=== PATIENT | female | born 1945 | race Caucasian/White ===

== ENCOUNTER 2016-09-29 06:06 | Inpatient (IN) | payer MEDICARE, OTHER ==
[~2016-09-29 06:06] MED LIST: EPINEPHrine 1:1000 1 MG/ML SDV ONE; Lidocaine 1% 4 ML ONE; Ropivacaine 0.5% 5 MG/ML 30 ML SDV ONE
[2016-09-29] MEDS ORDERED: Naloxone 0.4 MG/ML SDV IVPUSH PRN (06:21)
[2016-09-29] MEDS ORDERED: Clindamycin Phosphate 900 MG/6 ML AdvVial ONE (06:21)
[2016-09-29] MEDS ORDERED: Bisacodyl 5 MG Tab PO PRN (06:21)
[2016-09-29] MEDS ORDERED: ceFAZolin 1 GM Vial ONE (06:21)
[2016-09-29] MEDS ORDERED: Sennosides 8.6 MG Tab PO PRN (06:21)
[2016-09-29] MEDS ORDERED: Magnesium Hydroxide 400 MG/5 ML Susp 30 ML Cup PO PRN (06:21)
[2016-09-29] MEDS ORDERED: Vancomycin 1 GM SDV ONE (06:21)
[2016-09-29] MEDS ORDERED: Famotidine 20 MG/2 ML SDV IVPUSH SCH (06:30)
--- NOTE | 2016-09-29 06:32 | PCM.PREANE ---
Preanesthetic Assessment - Allergies Allergies/Adverse Reactions: Allergies Allergy/AdvReac Type Severity Reaction Status Date / Time adhesive tape Allergy Rash Verified 09/26/16 12:14 cefadroxil [From Duricef] Allergy Cannot Verified 09/26/16 12:14 Remember Cephalosporins Allergy Cannot Verified 09/26/16 12:14 Remember ciprofloxacin [From Cipro] Allergy Cannot Verified 09/26/16 12:14 Remember hydroxyzine [From Atarax] Allergy Cannot Verified 09/26/16 12:14 Remember methotrexate Allergy Cannot Verified 09/26/16 12:14 Remember Sulfa (Sulfonamide Allergy Cannot Verified 09/26/16 12:14 Antibiotics) Remember PreAnesthesia Questionnaire Cardiovascular History: Reports: Hypertension Musculoskeletal History: Reports: Osteoarthritis Psychiatric History: Reports: Depression Endocrine/Metabolic History: Reports: Hypothyroidism, Other (see below) Other Endocrine/Metabolic History: raynauds - Past Surgical History HEENT Surgical History: Reports: Adenoidectomy, Cataract surgery, Tonsillectomy Cardiovascular Surgical History: Reports: Other (see below) Other Cardiovascular Surgeries/Procedures: vein stripping GI Surgical History: Reports: Colonoscopy Female Surgical History: Reports: Breast biopsy, Hysterectomy Neurological Surgical History: Reports: Lumbar spine, Spinal fusion, Thoracic spine Musculoskeletal Surgical History: Reports: Knee replacement, Other (see below) Other Musculoskeletal Surgeries/Procedures:: bilateral knee replacements, bunionectomies - SUBSTANCE USE Smoking Status *Q: Former Smoker Recreational Drug Use History: No - HOME MEDS Home Medications: Home Meds Carvedilol [Coreg] 12.5 mg PO BID 09/26/16 [History] Cyclobenzaprine [Flexeril] 5 mg PO ASDIRECTED PRN 09/26/16 [History] DULoxetine [Cymbalta] 20 mg PO DAILY 09/26/16 [History] Esomeprazole [NexIUM] 40 mg PO DAILY 09/26/16 [History] Fexofenadine [Gabriela] 180 mg PO DAILY 09/26/16 [History] Levothyroxine 75 mcg PO DAILY 09/26/16 [History] Lutein/Zeaxanthin [Lutein-Zeaxanthin 25-5 mg Sfgl] 1 cap PO DAILY 09/26/16 [ History] Pravastatin [Pravachol] 20 mg PO DAILY 09/26/16 [History] Ubidecarenone [Co Q-10] 200 mg PO DAILY 09/26/16 [History] Vitamin B Complex 1 cap PO DAILY 09/26/16 [History] traMADol [Ultram] 50 mg PO ASDIRECTED PRN 09/26/16 [History] - CURRENT (IN HOUSE) MEDS Current Meds: Current Medications Lactated Ringer's (Ringers, Lactated) 1,000 mls @ 125 mls/hr IV ASDIRECTED MARTA Lidocaine/Sodium Bicarbonate (Buffered Lidocaine 1% In Ns 8.4%) 0.25 ml IV ONETIME PRN PRN Reason: Prior to IV Start Sodium Chloride (Saline Flush) 10 ml FLUSH ASDIRECTED PRN PRN Reason: Keep Vein Open Discontinued Medications Epinephrine HCl (Adrenalin 1:1000) Confirm Administered Dose 1 mg .ROUTE .STK- MED ONE Stop: 09/29/16 06:00 Lidocaine HCl (Xylocaine-Mpf 1%) Confirm Administered Dose 4 mls @ as directed .ROUTE .STK-MED ONE Stop: 09/29/16 05:59 Ropivacaine (Naropin 0.5%) Confirm Administered Dose 30 ml .ROUTE .STK-MED ONE Stop: 09/29/16 06:00 Preanesthetic Assessment - ANESTHESIA/TRANSFUSION/FAMILY HX Anesthesia/Transfusion History: No Prior Transfusion(s), Prior Anesthesia Type of Anesthesia Reaction: Denies: Allergy, Anesthesia Awareness, Excessive Somnolence, Excessive Nausea/Vomiting, Excessive Itching, Excessive Shivering, Malignant Hyperthermia, Malignant Hyperthermia, Family History, Pseudocholinesterase Deficiency, Pseudocholinesterase Deficiency, Family History of, Urinary Retention, Unknown, Other (see below) Family History of Anesthesia Reaction: No Intubation History: Unknown - REVIEW OF SYSTEMS Constitutional: Reports: no symptoms PHARMACY INTAKE COORDINATOR: Reports: no symptoms (rheumatoid arthritis and lupus noted/ raynauds syndrome), weakness Respiratory: Reports: no symptoms (quit smoking in 30 yrs ago.), cough ( occasional with allergies.) Cardiovascular: Reports: blood pressure problem, dyspnea on exertion, lightheadedness (history of vertigo spells on occasion.) GI: Reports: no symptoms (GERD) Other: Reports: Easy Bruising, Thyroid Problems, Sinus Problem (seasonal allergies noted), Neck Pain (chronic noted.), Depression, Anxiety - PHYSICAL ASSESSMENT HR: 67 O2 Sat by Pulse Oximetry: 95 RR: 16 BP: 110/56 Temp: 37.2 C Height: 1.65 m Weight: 102.965 kg NPO Status Date: 09/28/16 NPO Status Time: 17:00 ASA Class: 2 Mental Status: Alert & Oriented x3 Airway Class: Mallampati = 3 Dentition: Reports: Normal Dentition, Partial, Caries Thyro-Mental Finger Breadths: 3 Mouth Opening Finger Breadths: 3 ROM/Head Extension: Full Respiratory Status: lungs clear to auscultation bilaterally Cardiovascular Status: regular rate & rhythm, normal S1, S2, no murmur - LAB Values: Labs reviewed and noted. MRSA screen negative. - IMAGING/EKG Impressions: EKG: sinus bradycardia with first degree AV block, minimal ST depression noted. CXR: normal - ALLERGIES Allergies/Adverse Reactions: Allergies Allergy/AdvReac Type Severity Reaction Status Date / Time adhesive tape Allergy Rash Verified 09/26/16 12:14 cefadroxil [From Duricef] Allergy Cannot Verified 09/26/16 12:14 Remember Cephalosporins Allergy Cannot Verified 09/26/16 12:14 Remember ciprofloxacin [From Cipro] Allergy Cannot Verified 09/26/16 12:14 Remember hydroxyzine [From Atarax] Allergy Cannot Verified 09/26/16 12:14 Remember methotrexate Allergy Cannot Verified 09/26/16 12:14 Remember Sulfa (Sulfonamide Allergy Cannot Verified 09/26/16 12:14 Antibiotics) Remember - ANESTHESIA PLAN Preop Beta Greg: Yes Beta Greg: Carvedilol Beta-Greg Last Dose Date: 09/29/16 Beta-Greg Last Dose Time: 03:00 Anesthesia Type Planned: General Anesthesia (with left interscalene block under us guidance for post operative pain control requested by Dr. Pimentel.) - ACKNOWLEDGEMENTS Pt an Appropriate Candidate for the Planned Anesthesia: Yes Alternatives and Risks of Anesthesia Discussed w Pt/Guardian: Yes Pt/Guardian Understands and Agrees with Anesthesia Plan: Yes
[2016-09-29] MEDS ORDERED: Ondansetron 4 MG in Sodium Chloride 0.9% 50 ML IV PRN (06:44)
[2016-09-29] MEDS ORDERED: fentaNYL 100 MCG/2 ML SDV ONE ×2 (06:50→08:33)
[2016-09-29] MEDS ORDERED: Propofol 200 MG/20 ML SDV ONE (06:50)
[2016-09-29] MEDS ORDERED: Midazolam 1 MG/ML 2 ML SDV ONE (06:52)
[2016-09-29] MEDS ORDERED: Ondansetron 4 MG/2 ML SDV IVPUSH PRN (06:53)
[2016-09-29] MEDS ORDERED: Lidocaine 1%/Sod Bicarbonate in NS 8.4% 1 ML Syringe IV PRN (07:00)
[2016-09-29] MEDS ORDERED: Sodium Chloride 0.9% 10 ML Syringe FLUSH PRN (07:00)
[2016-09-29] MEDS ORDERED: Lactated Ringers 1,000 ML IV SCH (07:00)
--- NOTE | 2016-09-29 07:57 | PCM.SN ---
- Free Text/Narrative Note: Date: 09/29/2016 Time Out: 06 Start: 657 Stop: 709 Surgical Procedure: Left Reverse Total Shoulder Arthroplasty, and Right shoulder cortisone injection. Diagnosis: Bilateral osteoarthritis of shoulders Current Procedure: Left interscalene block under US guidance for postoperative pain control requested by Dr. Pimentel. Patient chart reviewed, risk/benefits discussed with patient, consent obtained. Patient positioned supine, monitors/alarms on, oxygen placed via nasal cannula at __2_LPM. IV sedation administered: Versed 2mg IV @ 0659. Fentanyl 50 mcg IV @0659. Left shoulder prepped with one chloroprep. Sterile drapes placed with aseptic technique noted. Under US guidance(sterile US sleeve noted) left subclavian artery visualized along with the left brachial plexus. Plexus followed up to C6 cricoid level, and area localized with 2mls of 1% lidocaine. 22gauge 2 inch stimiplex needle advanced under US with 0.8mV with stimulation of bicepts noted. Good stimulation noted as well at 0.4mVs. 1ml of Normal Saline injected with loss of stimulation noted to confirm needle not placed intraneurally. Incremental dosing of 5mls with negative aspiration noted prior to each injection of 0.5% ropivacaine with 1:200,000 epinephrine. Total volume=30mls. HR: 70,66 BP:122/95,121/63 RR:16,15 SPO2:99%,99% Laura Forte CRNA
[2016-09-29] MEDS: Bupivacaine 0.25% 30 ML SDV ONE ×2 (08:22→09:22)
[2016-09-29] MEDS: ceFAZolin 1 GM Vial ONE ×2 (08:23→09:17)
[2016-09-29] MEDS: Iodine/Sodium Iodide 2% Tincture 30 ML Bottle ONE ×2 (08:23→09:16)
[2016-09-29] MEDS: Triamcinolone Acetonide 40 MG/ML 1 ML MDV ONE ×2 (08:25→09:56)
[2016-09-29] MEDS ORDERED: ePHEDrine/Normal Saline 25 MG/5 ML Syringe ONE (08:27)
[2016-09-29] MEDS ORDERED: Phenylephrine/Normal Saline 100 MCG/ML 10 ML Syringe ONE (08:27)
[2016-09-29] MEDS ORDERED: Lactated Ringers 1,000 ML ONE (08:44)
--- NOTE | 2016-09-29 09:26 | PCM.OPNOTE ---
[id number] total shoulder arthroplasty Pre Op Diagnosis: left shoulder osteoarthrosis Post-Op Diagnosis: Same Anesthesia Technique: General ET tube, Regional block Primary Surgeon: Scott Pimentel Anesthesia Provider: Armin Wood Quality Assurance Engineer: Salma Dallas Quality Assurance Engineer: Nahomy Dalton EBL in mLs: 200 Complications: None Condition: Good Free Text/Narrative:: 36mm glenosphere size 7 stem 135 degree 3mm polyethylene insert small glenosphere baseplate with 2 locking screws and 20mm compression screw
[2016-09-29] MEDS ORDERED: Pneumococcal 13-Valent Conjugate Vaccine 0.5 ML Syringe IM ONE (09:48)
[2016-09-29] MEDS ORDERED: Ondansetron 4 MG/2 ML SDV ONE (09:54)
--- NOTE | 2016-09-29 10:22 | PCM.POSTAN ---
POST ANESTHESIA ASSESSMENT - MENTAL STATUS Mental Status: alert, oriented - VITAL SIGNS Pulse Rate: 72 SaO2: 95 Resp Rate: 11 Blood Pressure: 123/71 Temperature: 36.3 C - RESPIRATORY Respiratory Status: respiratory rate WNL, airway patent, O2 saturation stable - CARDIOVASCULAR CV Status: pulse rate WNL, blood pressure stable - GASTROINTESTINAL GI Status: no symptoms - PAIN Pain Score: 2 - POST OP HYDRATION Hydration Status: adequate & stable
--- NOTE | 2016-09-29 10:27 | CR ---
Left shoulder: Four fluoroscopic spot views were obtained of the left shoulder. Study obtained utilizing C-arm device. Findings: Left shoulder prosthesis is seen. Components are aligned as seen on the final 2 films. Underlying bony structures are grossly intact. Fluoroscopy time given as 7.8 seconds. Impression: 1. Operative study showing left shoulder prosthesis placement. Diagnostic code #2
[2016-09-29] MEDS: fentaNYL 100 MCG/2 ML SDV IVPUSH PRN ×2 (10:34→10:44)
--- NOTE | 2016-09-29 11:14 | CR ---
Left shoulder: Single AP view of the left shoulder was obtained. Left shoulder prosthesis is seen. Components are aligned. Soft tissue air is noted from the surgical procedure. Underlying bony structures are intact. Impression: 1. Satisfactory postop appearance of recently placed left shoulder prosthesis. Diagnostic code #2
[2016-09-29] MEDS: Acetaminophen/HYDROcodone 325-5 MG Tab PO PRN ×3 (11:26→21:07)
[2016-09-29] MEDS: Multivitamins,Therapeutic Tab PO SCH (11:42)
--- NOTE | 2016-09-29 14:04 | PCM.CONS ---
<Ana Dooley M - Last Filed: 09/29/16 18:03> H&P History of Present Illness - General Admit Problem/Dx: Admission Diagnosis/Problem Admission Diagnosis/Problem Osteoarthritis - Related Data Allergies/Adverse Reactions: Allergies Allergy/AdvReac Type Severity Reaction Status Date / Time adhesive tape Allergy Rash Verified 09/26/16 12:14 cefadroxil [From Duricef] Allergy Cannot Verified 09/26/16 12:14 Remember Cephalosporins Allergy Cannot Verified 09/26/16 12:14 Remember ciprofloxacin [From Cipro] Allergy Cannot Verified 09/26/16 12:14 Remember hydroxyzine [From Atarax] Allergy Cannot Verified 09/26/16 12:14 Remember methotrexate Allergy Cannot Verified 09/26/16 12:14 Remember Sulfa (Sulfonamide Allergy Cannot Verified 09/26/16 12:14 Antibiotics) Remember Home Medications: Home Meds Carvedilol [Coreg] 12.5 mg PO BID 09/26/16 [History] Cyclobenzaprine [Flexeril] 5 mg PO ASDIRECTED PRN 09/26/16 [History] DULoxetine [Cymbalta] 20 mg PO DAILY 09/26/16 [History] Esomeprazole [NexIUM] 40 mg PO DAILY 09/26/16 [History] Fexofenadine [Gabriela] 180 mg PO DAILY 09/26/16 [History] Levothyroxine 75 mcg PO DAILY 09/26/16 [History] Lutein/Zeaxanthin [Lutein-Zeaxanthin 25-5 mg Sfgl] 1 cap PO DAILY 09/26/16 [ History] Pravastatin [Pravachol] 20 mg PO DAILY 09/26/16 [History] Ubidecarenone [Co Q-10] 200 mg PO DAILY 09/26/16 [History] Vitamin B Complex 1 cap PO DAILY 09/26/16 [History] traMADol [Ultram] 50 mg PO ASDIRECTED PRN 09/26/16 [History] Exam - Vital Signs Vital Signs: Last Vital Signs Temp 36.9 C 09/29/16 11:55 Pulse 70 09/29/16 16:00 Resp 18 09/29/16 16:00 BP 132/74 09/29/16 16:00 Pulse Ox 99 09/29/16 16:00 Consult PN Assessment/Plan Procedures: Procedures ASSAY OF CK (CPK) (04/21/16) C-REACTIVE PROTEIN (04/21/16) COMPLETE CBC AUTOMATED (04/21/16) COMPREHEN METABOLIC PANEL (04/21/16) LIPID PANEL (04/21/16) MR-MESSI DNA AMP PROBE (09/05/16) OFFICE/OUTPATIENT VISIT NEW (03/13/16) ORTHOTIC MGMT AND TRAINING (03/13/16) ROUTINE VENIPUNCTURE (04/21/16) <Winnie Melvin M - Last Filed: 09/30/16 06:52> H&P History of Present Illness - General Date of Service: 09/29/16 Admit Problem/Dx: Admission Diagnosis/Problem Admission Diagnosis/Problem Osteoarthritis Lt Total shoulder arthroplasty Source of Information: Patient, Other (records review) History Limitations: Reports: No limitations - History of Present Illness Initial Comments - Free Text/Narative: Holly is a 71yo female s/p left total shoulder arthroplasty with Dr. Pimentel this morning. She is doing well thus far. Pain is under control, no nausea. PT has been in and working with her. PMH is significant for HTN, Hypothyroidism, HLD, GERD, seasonal allergies, RA, Lupus, Raynauds, she is a former smoker. EBL in surgery was 200cc Hospitalist service is consulted for postoperative medical management. Left Shoulder Pain Score (Numeric/FACES): 5 Past Medical History Cardiovascular History: Reports: Hypertension Musculoskeletal History: Reports: Osteoarthritis Psychiatric History: Reports: Depression Endocrine/Metabolic History: Reports: Hypothyroidism, Other (see below) Other Endocrine/Metabolic History: raynauds - Past Surgical History HEENT Surgical History: Reports: Adenoidectomy, Cataract surgery, Tonsillectomy Cardiovascular Surgical History: Reports: Other (see below) Other Cardiovascular Surgeries/Procedures: vein stripping GI Surgical History: Reports: Colonoscopy Female Surgical History: Reports: Breast biopsy, Hysterectomy Neurological Surgical History: Reports: Lumbar spine, Spinal fusion, Thoracic spine Musculoskeletal Surgical History: Reports: Knee replacement, Other (see below) Other Musculoskeletal Surgeries/Procedures:: bilateral knee replacements, bunionectomies Social & Family History - Tobacco Use Smoking Status *Q: Former Smoker Used Tobacco, but Quit: Yes - Recreational Drug Use Recreational Drug Use: No Drug Use in Last 12 Months: No H&P Review of Systems - Review of Systems: Review Of Systems: See Below General: Reports: no symptoms HEENT: Reports: no symptoms Pulmonary: Reports: No Symptoms Cardiovascular: Reports: no symptoms Gastrointestinal: Reports: No symptoms Genitourinary: Reports: no symptoms Musculoskeletal: Reports: shoulder pain (lt) Skin: Reports: no symptoms Psychiatric: Reports: no symptoms Neurological: Reports: No Symptoms Exam - Exam Exam: See Below - Vital Signs Vital Signs: Last Vital Signs Temp 98.4 F 09/29/16 11:55 Pulse 68 09/29/16 11:55 Resp 18 09/29/16 11:55 BP 128/61 09/29/16 11:55 Pulse Ox 99 09/29/16 11:55 Weight: 227 lb - Exam Quality Assessment: DVT prophylaxis General: alert, oriented, cooperative HEENT: Conjunctiva clear, EACs clear, EOMI, Hearing intact, Mucosa moist & pink , Pupils equal Neck: supple, trachea midline Lungs: Clear to auscultation, Normal respiratory effort Cardiovascular: regular rate, regular rhythm Abdomen: normal bowel sounds, soft (Female) Exam: Deferred Rectal (Female) Exam: Deferred Back Exam: normal inspection Extremities: other (lt arm in postop brace; radial pulse 2+) Skin: warm, dry Neurological: cranial nerves intact Neuro Extensive - Mental Status: alert, oriented x3, normal mood/affect, normal cognition, memory intact Psychiatric: alert, normal affect, normal mood Consult PN Assessment/Plan POD#: 0 Procedures: Procedures ASSAY OF CK (CPK) (04/21/16) C-REACTIVE PROTEIN (04/21/16) COMPLETE CBC AUTOMATED (04/21/16) COMPREHEN METABOLIC PANEL (04/21/16) LIPID PANEL (04/21/16) MR-STAP DNA AMP PROBE (09/05/16) OFFICE/OUTPATIENT VISIT NEW (03/13/16) ORTHOTIC MGMT AND TRAINING (03/13/16) ROUTINE VENIPUNCTURE (04/21/16) (1) Status post total shoulder arthroplasty SNOMED Code(s): 187397118, 362523738 Code(s): Z96.619 - PRESENCE OF UNSPECIFIED ARTIFICIAL SHOULDER JOINT Priority: High Current Visit: Yes Qualifiers: Qualified Code(s): Z96.612 - Presence of left artificial shoulder joint (2) Osteoarthritis SNOMED Code(s): 364685535 Code(s): M19.90 - UNSPECIFIED OSTEOARTHRITIS, UNSPECIFIED SITE Priority: High Current Visit: Yes Qualifiers: Qualified Code(s): M19.012 - Primary osteoarthritis, left shoulder (3) HTN (hypertension) SNOMED Code(s): 27010043 Code(s): I10 - ESSENTIAL (PRIMARY) HYPERTENSION Priority: High Current Visit: No Qualifiers: Qualified Code(s): I10 - Essential (primary) hypertension (4) HLD (hyperlipidemia) SNOMED Code(s): 73230752 Code(s): E78.5 - HYPERLIPIDEMIA, UNSPECIFIED Priority: High Current Visit : No Qualifiers: Qualified Code(s): E78.5 - Hyperlipidemia, unspecified (5) Hypothyroidism SNOMED Code(s): 89448761 Code(s): E03.9 - HYPOTHYROIDISM, UNSPECIFIED Priority: High Current Visit : No Qualifiers: Qualified Code(s): E03.9 - Hypothyroidism, unspecified (6) Depression SNOMED Code(s): 70898107 Code(s): F32.9 - MAJOR DEPRESSIVE DISORDER, SINGLE EPISODE, UNSPECIFIED Priority: Medium Current Visit: No Qualifiers: Qualified Code(s): F32.9 - Major depressive disorder, single episode, unspecified (7) Rheumatoid arthritis SNOMED Code(s): 06091918 Code(s): M06.9 - RHEUMATOID ARTHRITIS, UNSPECIFIED Priority: Medium Current Visit: No (8) Lupus SNOMED Code(s): 84197413, 720287651 Code(s): M32.9 - SYSTEMIC LUPUS ERYTHEMATOSUS, UNSPECIFIED Priority: Medium Current Visit: No Qualifiers: Qualified Code(s): M32.9 - Systemic lupus erythematosus, unspecified (9) GERD (gastroesophageal reflux disease) SNOMED Code(s): 358190608 Code(s): K21.9 - GASTRO-ESOPHAGEAL REFLUX DISEASE WITHOUT ESOPHAGITIS Priority: Medium Current Visit: No Qualifiers: Qualified Code(s): K21.9 - Gastro-esophageal reflux disease without esophagitis (10) Seasonal allergies SNOMED Code(s): 671731917 Code(s): J30.2 - OTHER SEASONAL ALLERGIC RHINITIS Priority: Medium Current Visit: No Qualifiers: Qualified Code(s): J30.2 - Other seasonal allergic rhinitis Problem List Initiated/Reviewed/Updated: Yes Plan: POD #0 S/P Lt Total shoulder arthroplasty with Dr. Pimentel -Pain management and DVT prophylax per primary team/Ortho -PT/OT -VSS -200cc EBL -Doing well thus far Other: Chronic conditions- cont home meds HTN HLD Hypothyroidism RA/Lupus/Raynauds GERD Depression Seasonal allergies Follow am labs GI prophylax Patient is full code status.
[2016-09-29] MEDS: ceFAZolin 2 GM in Premix Bag 1 BAG IV SCH ×2 (15:43→21:46)
[2016-09-29] MEDS: Carvedilol 12.5 MG Tab PO SCH ×2 (19:30→21:03)
[2016-09-29] MEDS: Docusate Sodium 100 MG Cap PO SCH ×2 (19:31→21:02)
[2016-09-29] MEDS: Morphine 2 MG/ML Syringe IVPUSH PRN ×2 (20:39→22:53)
[2016-09-30] MEDS: Morphine 2 MG/ML Syringe IVPUSH PRN ×2 (01:00→04:57)
[2016-09-30] MEDS: Multivitamins,Therapeutic Tab PO SCH (06:58)
[2016-09-30] MEDS: ceFAZolin 2 GM in Premix Bag 1 BAG IV SCH (07:10)
[2016-09-30] MEDS: DULoxetine 20 MG Cap PO SCH ×2 (07:28→09:18)
[2016-09-30] MEDS: Levothyroxine 75 MCG Tab PO SCH ×2 (07:28→09:24)
[2016-09-30] MEDS: Acetaminophen/HYDROcodone 325-5 MG Tab PO PRN ×2 (07:28→12:33)
[2016-09-30] MEDS: Vitamin B Complex With Vitamin C Cap PO SCH ×2 (07:28→09:19)
[2016-09-30] MEDS: Pantoprazole 40 MG Tab.CR PO SCH ×2 (07:29→09:18)
[2016-09-30] MEDS: Loratadine 10 MG Tab PO SCH ×2 (07:29→09:18)
[2016-09-30] MEDS: Aspirin 325 MG Tab.EC PO SCH ×2 (07:29→09:18)
[2016-09-30] MEDS: Simvastatin 10 MG Tab PO SCH ×2 (07:29→09:19)
[2016-09-30] MEDS: Docusate Sodium 100 MG Cap PO SCH ×2 (07:29→09:18)
[2016-09-30] MEDS: Carvedilol 12.5 MG Tab PO SCH ×2 (07:29→09:18)
--- NOTE | 2016-09-30 07:41 | PCM.CONSN ---
- General Info Date of Service: 09/30/16 Admission Dx/Problem (Free Text): Admission Diagnosis/Problem Admission Diagnosis/Problem Osteoarthritis Lt Total shoulder arthroplasty- POD #[address] Pimentel Doing well thus far; pain under fair control, VSS, hgb stable at 12.3 this am Plans for DC to [facility] Functional Status: Reports: pain controlled, tolerating diet, ambulating, urinating - Review of Systems General: Reports: No Symptoms HEENT: Reports: no symptoms Pulmonary: Reports: no symptoms Cardiovascular: Reports: No Symptoms Gastrointestinal: Reports: No symptoms Genitourinary: Reports: no symptoms Musculoskeletal: Reports: shoulder pain Skin: Reports: no symptoms Neurological: Reports: No Symptoms Psychiatric: Reports: no symptoms - Patient Data Vitals - most recent: Last Vital Signs Temp 98.3 F 09/30/16 04:00 Pulse 75 09/30/16 04:00 Resp 20 09/30/16 04:00 BP 135/68 09/30/16 07:29 Pulse Ox 96 09/30/16 04:00 Weight - most recent: 227 lb I&O - last 24 hours: Intake & Output 09/29/16 09/30/16 09/30/16 22:59 06:59 14:59 Intake Total 2110 50 Output Total 150 Balance 1960 50 Lab Results last 24 hrs: Laboratory Results - last 24 hr 09/30/16 Range/Units 07:05 WBC 10.78 H (3.98-10.04) K/mm3 RBC 3.72 L (3.98-5.22) M/mm3 Hgb 12.3 (11.2-15.7) gm/L Hct 37.6 (34.1-44.9) % MCV 101.1 H (79.4-94.8) fl MCH 33.1 H (25.6-32.2) pg MCHC 32.7 (32.2-35.5) g/dl RDW Std Deviation 46.1 (36.4-46.3) fL Plt Count 234 (182-369) K/mm3 MPV 9.7 (9.4-12.3) fl Neut % (Auto) 61.0 (34.0-71.1) % Lymph % (Auto) 18.4 L (19.3-51.7) % [place] % (Auto) 19.1 H (4.7-12.5) % Eos % (Auto) 0.8 (0.7-5.8) Baso % (Auto) 0.5 (0.1-1.2) % Neut # (Auto) 6.58 H (1.56-6.13) K/mm3 Lymph # (Auto) 1.98 (1.18-3.74) K/mm3 [place] # (Auto) 2.06 H (0.24-0.36) K/mm3 Eos # (Auto) 0.09 (0.04-0.36) K/mm3 Baso # (Auto) 0.05 (0.01-0.08) K/mm3 Manual Slide Review Normal smear Med Orders - Current: Current Medications Hydrocodone Bitart/Acetaminophen ([place] 325-5 Mg) 1 - 2 tab PO Q4H PRN PRN Reason: Pain Last Admin: 09/30/16 07:28 Dose: 2 tab Aspirin (Ecotrin) 325 mg PO DAILY [facility] Last Admin: 09/30/16 07:29 Dose: 325 mg Bisacodyl (Dulcolax) 5 mg PO DAILY PRN PRN Reason: Constipation Carvedilol (Coreg) 12.5 mg PO BID [facility] Last Admin: 09/30/16 07:29 Dose: 12.5 mg Docusate Sodium (Colace) 100 mg PO BID [facility] Last Admin: 09/30/16 07:29 Dose: 100 mg Duloxetine HCl (Cymbalta) 20 mg PO DAILY [facility] Last Admin: 09/30/16 07:28 Dose: 20 mg Cefazolin Sodium/Dextrose 2 gm (/ Premix) 50 mls @ 100 mls/hr IV Q8H [facility] Last Admin: 09/30/16 07:10 Dose: 100 mls/hr Levothyroxine Sodium (Levothyroxine) 75 mcg PO DAILY [facility] Last Admin: 09/30/16 07:28 Dose: 75 mcg Loratadine (Claritin) 10 mg PO DAILY [facility] Last Admin: 09/30/16 07:29 Dose: 10 mg Magnesium Hydroxide (Milk Of Magnesia) 30 ml PO BID PRN PRN Reason: Constipation Morphine Sulfate (Morphine) 1 mg IVPUSH Q2H PRN PRN Reason: Pain Last Admin: 09/30/16 04:57 Dose: 1 mg Multivitamins (Thera) 1 each PO WITHBREAKFAST [facility] Last Admin: 09/30/16 06:58 Dose: 1 each Ondansetron HCl (Zofran) 4 mg IVPUSH Q6H PRN PRN Reason: NAUSEA Pantoprazole Sodium (Protonix) 40 mg PO DAILY [facility] Last Admin: 09/30/16 07:29 Dose: 40 mg Lutein/Zeaxanthin [ Lutein-Zeaxanthin 25 -5 Mg Sfgl] 1 Cap 0 each PO DAILY [facility] Senna (Senna) 8.6 mg PO BID PRN PRN Reason: Constipation Last Admin: 09/30/16 07:29 Dose: 8.6 mg Simvastatin (Zocor) 10 mg PO DAILY [facility] Last Admin: 09/30/16 07:29 Dose: 10 mg Vitamin B Complex/Vitamin C (Super B With Vitamin C) 1 cap PO DAILY [facility] Last Admin: 09/30/16 07:28 Dose: 1 cap Discontinued Medications Bupivacaine HCl (Marcaine 0.25%) Confirm Administered Dose 60 ml .ROUTE .STK- MED ONE Stop: 09/29/16 06:22 Last Admin: 09/29/16 09:22 Dose: 14 ml Cefazolin Sodium (Ancef) Confirm Administered Dose 2 gm .ROUTE .STK-MED ONE Stop: 09/29/16 06:22 Cefazolin Sodium (Ancef) Confirm Administered Dose 2 gm .ROUTE .STK-MED ONE Stop: 09/29/16 07:34 Last Admin: 09/29/16 09:17 Dose: 2 gm Clindamycin Phosphate (Cleocin) Confirm Administered Dose 900 mg .ROUTE .STK- MED ONE Stop: 09/29/16 06:22 Ephedrine Sulfate (Ephedrine In Ns) Confirm Administered Dose 25 mg .ROUTE .STK- MED ONE Stop: 09/29/16 08:28 Epinephrine HCl (Adrenalin 1:1000) Confirm Administered Dose 1 mg .ROUTE .STK- MED ONE Stop: 09/29/16 06:00 Famotidine (Pepcid) 20 mg IVPUSH Q12H [facility] Last Admin: 09/29/16 11:42 Dose: Not Given Fentanyl (Sublimaze) Confirm Administered Dose 100 mcg .ROUTE .STK-MED ONE Stop: 09/29/16 06:51 Fentanyl (Sublimaze) Confirm Administered Dose 100 mcg .ROUTE .STK-MED ONE Stop: 09/29/16 08:34 Fentanyl (Sublimaze) 50 mcg IVPUSH Q5M PRN PRN Reason: Pain Stop: 09/29/16 10:46 Last Admin: 09/29/16 10:44 Dose: 50 mcg Lactated Ringer's (Ringers, Lactated) 1,000 mls @ 125 mls/hr IV ASDIRECTED [facility] Stop: 09/29/16 23:00 Last Admin: 09/29/16 06:40 Dose: 125 mls/hr Lidocaine HCl (Xylocaine-Mpf 1%) Confirm Administered Dose 4 mls @ as directed .ROUTE .STK-MED ONE Stop: 09/29/16 05:59 Lactated Ringer's (Ringers, Lactated) Confirm Administered Dose 1,000 mls @ as directed .ROUTE .STK-MED ONE Stop: 09/29/16 08:45 Iodine (Iodine 2% Mild Tincture) Confirm Administered Dose 30 ml .ROUTE .STK- MED ONE Stop: 09/29/16 06:22 Last Admin: 09/29/16 09:16 Dose: 18 ml Lidocaine/Sodium Bicarbonate (Buffered Lidocaine 1% In Ns 8.4%) 0.25 ml IV ONETIME PRN PRN Reason: Prior to IV Start Stop: 09/29/16 18:00 Last Admin: 09/29/16 06:39 Dose: 0.25 ml Midazolam HCl (Versed 1 Mg/Ml) Confirm Administered Dose 2 mg .ROUTE .STK-MED ONE Stop: 09/29/16 06:53 Naloxone HCl (Narcan) 0.1 mg IVPUSH Q5M PRN PRN Reason: Oversedation Stop: 09/29/16 06:37 Ondansetron HCl (Zofran) Confirm Administered Dose 4 mg .ROUTE .STK-MED ONE Stop: 09/29/16 09:55 Phenylephrine HCl (Phenylephrine In Ns 100 Mcg/Ml) Confirm Administered Dose 1 mg .ROUTE .STK-MED ONE Stop: 09/29/16 08:28 Pneumococcal 13-Valent Conj Vacc (Prevnar 13) 0.5 ml IM .ONCE ONE Stop: 09/29/16 09:49 Propofol (Diprivan 20 Ml) Confirm Administered Dose 200 mg .ROUTE .STK-MED ONE Stop: 09/29/16 06:51 Ropivacaine (Naropin 0.5%) Confirm Administered Dose 30 ml .ROUTE .STK-MED ONE Stop: 09/29/16 06:00 Sodium Chloride (Saline Flush) 10 ml FLUSH ASDIRECTED PRN PRN Reason: Keep Vein Open Stop: 09/29/16 18:00 Tranexamic Acid (Cyklokapron) Confirm Administered Dose 1,000 mg .ROUTE .STK- MED ONE Stop: 09/29/16 06:50 Last Admin: 09/29/16 09:42 Dose: 1,000 mg Triamcinolone Acetonide (Kenalog-40) Confirm Administered Dose 80 mg .ROUTE .STK -MED ONE Stop: 09/29/16 06:22 Last Admin: 09/29/16 09:56 Dose: 80 mg Vancomycin HCl (Vancomycin) Confirm Administered Dose 1 gm .ROUTE .STK-MED ONE Stop: 09/29/16 06:22 - Exam Quality Assessment: DVT prophylaxis General: alert, oriented, cooperative, no acute distress HEENT: Pupils equal, Pupils reactive, EOMI, Mucous membr. moist/pink Neck: supple Lungs: Clear to auscultation, Normal respiratory effort Cardiovascular: Regular Rate, Regular Rhythm Abdomen: bowel sounds present, soft, no tenderness, no distension (Female) Exam: Deferred Extremities: no edema, no calf tenderness Peripheral Pulses: 2+: radial (L), radial (R) Skin: warm, dry, intact Neurological: no new focal deficit Psy/Mental Status: alert, normal affect, normal mood Consult PN Assessment/Plan POD#: 1 Procedures: Procedures ASSAY OF CK (CPK) (04/21/16) C-REACTIVE PROTEIN (04/21/16) COMPLETE CBC AUTOMATED (04/21/16) COMPREHEN METABOLIC PANEL (04/21/16) LIPID PANEL (04/21/16) MR-STAPH DNA AMP PROBE (09/05/16) OFFICE/OUTPATIENT VISIT NEW (03/13/16) ORTHOTIC MGMT AND TRAINING (03/13/16) ROUTINE VENIPUNCTURE (04/21/16) (1) Status post total shoulder arthroplasty SNOMED Code(s): 167845736, 416271195 Code(s): Z96.619 - PRESENCE OF UNSPECIFIED ARTIFICIAL SHOULDER JOINT Priority: High Current Visit: Yes Qualifiers: Laterality: left Qualified Code(s): Z96.612 - Presence of left artificial shoulder joint (2) Osteoarthritis SNOMED Code(s): 217608542 Code(s): M19.90 - UNSPECIFIED OSTEOARTHRITIS, UNSPECIFIED SITE Priority: High Current Visit: Yes Qualifiers: Osteoarthritis location: shoulder Osteoarthritis type: primary Laterality : left Qualified Code(s): M19.012 - Primary osteoarthritis, left shoulder (3) HTN (hypertension) SNOMED Code(s): 22195694 Code(s): I10 - ESSENTIAL (PRIMARY) HYPERTENSION Priority: High Current Visit: No Qualifiers: Hypertension type: essential hypertension Qualified Code(s): I10 - Essential (primary) hypertension (4) HLD (hyperlipidemia) SNOMED Code(s): 29082079 Code(s): E78.5 - HYPERLIPIDEMIA, UNSPECIFIED Priority: High Current Visit : No Qualifiers: Hyperlipidemia type: unspecified Qualified Code(s): E78.5 - Hyperlipidemia , unspecified (5) Hypothyroidism SNOMED Code(s): 54856585 Code(s): E03.9 - HYPOTHYROIDISM, UNSPECIFIED Priority: High Current Visit : No Qualifiers: Hypothyroidism type: unspecified Qualified Code(s): E03.9 - Hypothyroidism , unspecified (6) Depression SNOMED Code(s): 40706962 Code(s): F32.9 - MAJOR DEPRESSIVE DISORDER, SINGLE EPISODE, UNSPECIFIED Priority: Medium Current Visit: No Qualifiers: Depression Type: unspecified Qualified Code(s): F32.9 - Major depressive disorder, single episode, unspecified (7) Rheumatoid arthritis SNOMED Code(s): 42431985 Code(s): M06.9 - RHEUMATOID ARTHRITIS, UNSPECIFIED Priority: Medium Current Visit: No Qualifiers: Rheumatoid arthritis location: unspecified site (8) Lupus SNOMED Code(s): 28505873, 687239169 Code(s): M32.9 - SYSTEMIC LUPUS ERYTHEMATOSUS, UNSPECIFIED Priority: Medium Current Visit: No Qualifiers: Systemic lupus erythematosus type: unspecified Systemic lupus erythematosus organ involvement: unspecified Qualified Code(s): M32.9 - Systemic lupus erythematosus, unspecified (9) GERD (gastroesophageal reflux disease) SNOMED Code(s): 684603700 Code(s): K21.9 - GASTRO-ESOPHAGEAL REFLUX DISEASE WITHOUT ESOPHAGITIS Priority: Medium Current Visit: No Qualifiers: Esophagitis presence: esophagitis presence not specified Qualified Code(s) : K21.9 - Gastro-esophageal reflux disease without esophagitis (10) Seasonal allergies SNOMED Code(s): 724984630 Code(s): J30.2 - OTHER SEASONAL ALLERGIC RHINITIS Priority: Medium Current Visit: No Qualifiers: Allergic rhinitis trigger: unspecified Qualified Code(s): J30.2 - Other seasonal allergic rhinitis Problem List Initiated/Reviewed/Updated: Yes My Orders last 24 hours: My Active Orders 09/29/16 21:00 Carvedilol [Coreg] 12.5 mg PO BID 09/30/16 09:00 DULoxetine [Cymbalta] 20 mg PO DAILY Levothyroxine 75 mcg PO DAILY Loratadine [Claritin] 10 mg PO DAILY Pantoprazole [Protonix] 40 mg PO DAILY Patient's Own Medication [Ptom] 0 each PO DAILY Simvastatin [Zocor] 10 mg PO DAILY Vitamin B Complex with C [Super B With Vitamin C] 1 cap PO DAILY Plan: POD #1 S/P Lt Total shoulder arthroplasty with Dr. Pimentel -Pain management and DVT prophylax per primary team/Ortho -PT/OT -VSS -200cc EBL--12.3 hgb this am -Doing well today Other: Chronic conditions- cont home meds HTN HLD Hypothyroidism RA/Lupus/Raynauds GERD Depression Seasonal allergies Follow am labs GI prophylax Plans for dc to skilled swingbed in [place] later today with family to transport. Patient is full code status.
[2016-09-30 08:24] VITALS: BP 132/68
[2016-09-30] MEDS ORDERED: LUTEIN PO SCH (09:00)
[2016-09-30] MEDS ORDERED: ZEAXANTHIN PO SCH (09:00)
--- NOTE | 2016-09-30 09:39 | PCM48HPAN ---
Post Anesthesia Note - EVALUATION WITHIN 48HRS OF ANESTHETIC Vital Signs in Normal Range: Yes Patient Participated in Evaluation: Yes Respiratory Function Stable: Yes Airway Patent: Yes Cardiovascular Function Stable: Yes Hydration Status Stable: Yes Pain Control Satisfactory: Yes Nausea and Vomiting Control Satisfactory: Yes Mental Status Recovered: Yes - COMMENTS/OBSERVATIONS Free Text/Narrative:: Pt reports doing well. interscalene block worked well. pain since block resolved has been well-controlled. using restroom, taking p.o., ambulating. denies fever, chills, nausea, vomiting. reports very satisfied with anesthesia care overall.
--- NOTE | 2016-09-30 10:38 | PCM.SN ---
- Free Text/Narrative Note: Spoke with Dr Munoz in [place], Swing Bed Unit re: report of patient. He is in agreement to accept patient for skilled care stay.
--- NOTE | 2016-09-30 13:35 | PCM.SURGPN ---
- General Info Date of Service: 09/30/16 POD#: 1 Functional Status: Reports: pain controlled, tolerating diet, ambulating, urinating. Denies: new symptoms - Review of Systems Musculoskeletal: Reports: other (The pt would like to be discharged to the Swingbed Unit.) - Patient Data Vitals - most recent: Last Vital Signs Temp 98.1 F 09/30/16 08:00 Pulse 81 09/30/16 08:00 Resp 20 09/30/16 08:00 BP 132/68 09/30/16 08:00 Pulse Ox 94 L 09/30/16 08:00 Weight - most recent: 227 lb I&O - last 24 hours: Intake & Output 09/29/16 09/30/16 09/30/16 22:59 06:59 14:59 Intake Total 2110 50 120 Output Total 150 Balance 1960 50 120 Lab Results last 24 hrs: Laboratory Results - last 24 hr 09/30/16 09/30/16 Range/Units 07:05 07:05 WBC 10.78 H (3.98-10.04) K/mm3 RBC 3.72 L (3.98-5.22) M/mm3 Hgb 12.3 (11.2-15.7) gm/L Hct 37.6 (34.1-44.9) % MCV 101.1 H (79.4-94.8) fl MCH 33.1 H (25.6-32.2) pg MCHC 32.7 (32.2-35.5) g/dl RDW Std Deviation 46.1 (36.4-46.3) fL Plt Count 234 (182-369) K/mm3 MPV 9.7 (9.4-12.3) fl Neut % (Auto) 61.0 (34.0-71.1) % Lymph % (Auto) 18.4 L (19.3-51.7) % [place] % (Auto) 19.1 H (4.7-12.5) % Eos % (Auto) 0.8 (0.7-5.8) Baso % (Auto) 0.5 (0.1-1.2) % Neut # (Auto) 6.58 H (1.56-6.13) K/mm3 Lymph # (Auto) 1.98 (1.18-3.74) K/mm3 [place] # (Auto) 2.06 H (0.24-0.36) K/mm3 Eos # (Auto) 0.09 (0.04-0.36) K/mm3 Baso # (Auto) 0.05 (0.01-0.08) K/mm3 Manual Slide Review Normal smear Sodium 135 L (136-145) mEq/L Potassium 4.5 (3.5-5.1) mEq/L Chloride 100 (98-107) mEq/L Carbon Dioxide 28 (21-32) mEq/L Anion Gap 11.5 (5-15) BUN 10 (7-18) mg/dL Creatinine 0.8 (0.55-1.02) mg/dL Est Cr Clr Drug Dosing 56.36 mL/min Estimated GFR (MDRD) > 60 (>60) mL/min BUN/Creatinine Ratio 12.5 L (14-18) Glucose 117 H (83-115) mg/dL Calcium 9.1 (8.5-10.1) mg/dL Total Bilirubin 0.6 (0.2-1.0) mg/dL AST 23 (15-37) U/L ALT 19 (14-59) U/L Alkaline Phosphatase 93 (46-116) U/L Total Protein 6.7 (6.4-8.2) g/dl Albumin 3.1 L (3.4-5.0) g/dl Globulin 3.6 gm/dL Albumin/Globulin Ratio 0.9 L (1-2) Med Orders - Current: Current Medications Hydrocodone Bitart/Acetaminophen ([place] 325-5 Mg) 1 - 2 tab PO Q4H PRN PRN Reason: Pain Last Admin: 09/30/16 12:33 Dose: 2 tab Aspirin (Ecotrin) 325 mg PO DAILY [facility] Last Admin: 09/30/16 09:18 Dose: Not Given Bisacodyl (Dulcolax) 5 mg PO DAILY PRN PRN Reason: Constipation Carvedilol (Coreg) 12.5 mg PO BID [facility] Last Admin: 09/30/16 09:18 Dose: Not Given Docusate Sodium (Colace) 100 mg PO BID [facility] Last Admin: 09/30/16 09:18 Dose: Not Given Duloxetine HCl (Cymbalta) 20 mg PO DAILY [facility] Last Admin: 09/30/16 09:18 Dose: Not Given Levothyroxine Sodium (Levothyroxine) 75 mcg PO DAILY [facility] Last Admin: 09/30/16 09:24 Dose: Not Given Loratadine (Claritin) 10 mg PO DAILY [facility] Last Admin: 09/30/16 09:18 Dose: Not Given Magnesium Hydroxide (Milk Of Magnesia) 30 ml PO BID PRN PRN Reason: Constipation Morphine Sulfate (Morphine) 1 mg IVPUSH Q2H PRN PRN Reason: Pain Last Admin: 09/30/16 04:57 Dose: 1 mg Multivitamins (Thera) 1 each PO WITHBREAKFAST [facility] Last Admin: 09/30/16 06:58 Dose: 1 each Ondansetron HCl (Zofran) 4 mg IVPUSH Q6H PRN PRN Reason: NAUSEA Pantoprazole Sodium (Protonix) 40 mg PO DAILY [facility] Last Admin: 09/30/16 09:18 Dose: Not Given Lutein/Zeaxanthin [ Lutein-Zeaxanthin 25 -5 Mg Sfgl] 1 Cap 0 each PO DAILY [facility] Last Admin: 09/30/16 09:19 Dose: Not Given Senna (Senna) 8.6 mg PO BID PRN PRN Reason: Constipation Last Admin: 09/30/16 07:29 Dose: 8.6 mg Simvastatin (Zocor) 10 mg PO DAILY [facility] Last Admin: 09/30/16 09:19 Dose: Not Given Vitamin B Complex/Vitamin C (Super B With Vitamin C) 1 cap PO DAILY [facility] Last Admin: 09/30/16 09:19 Dose: Not Given Discontinued Medications Bupivacaine HCl (Marcaine 0.25%) Confirm Administered Dose 60 ml .ROUTE .STK- MED ONE Stop: 09/29/16 06:22 Last Admin: 09/29/16 09:22 Dose: 14 ml Cefazolin Sodium (Ancef) Confirm Administered Dose 2 gm .ROUTE .STK-MED ONE Stop: 09/29/16 06:22 Cefazolin Sodium (Ancef) Confirm Administered Dose 2 gm .ROUTE .STK-MED ONE Stop: 09/29/16 07:34 Last Admin: 09/29/16 09:17 Dose: 2 gm Clindamycin Phosphate (Cleocin) Confirm Administered Dose 900 mg .ROUTE .STK- MED ONE Stop: 09/29/16 06:22 Ephedrine Sulfate (Ephedrine In Ns) Confirm Administered Dose 25 mg .ROUTE .STK- MED ONE Stop: 09/29/16 08:28 Epinephrine HCl (Adrenalin 1:1000) Confirm Administered Dose 1 mg .ROUTE .STK- MED ONE Stop: 09/29/16 06:00 Famotidine (Pepcid) 20 mg IVPUSH Q12H [facility] Last Admin: 09/29/16 11:42 Dose: Not Given Fentanyl (Sublimaze) Confirm Administered Dose 100 mcg .ROUTE .STK-MED ONE Stop: 09/29/16 06:51 Fentanyl (Sublimaze) Confirm Administered Dose 100 mcg .ROUTE .STK-MED ONE Stop: 09/29/16 08:34 Fentanyl (Sublimaze) 50 mcg IVPUSH Q5M PRN PRN Reason: Pain Stop: 09/29/16 10:46 Last Admin: 09/29/16 10:44 Dose: 50 mcg Lactated Ringer's (Ringers, Lactated) 1,000 mls @ 125 mls/hr IV ASDIRECTED [facility] Stop: 09/29/16 23:00 Last Admin: 09/29/16 06:40 Dose: 125 mls/hr Lidocaine HCl (Xylocaine-Mpf 1%) Confirm Administered Dose 4 mls @ as directed .ROUTE .STK-MED ONE Stop: 09/29/16 05:59 Cefazolin Sodium/Dextrose 2 gm (/ Premix) 50 mls @ 100 mls/hr IV Q8H [facility] Last Admin: 09/30/16 07:10 Dose: 100 mls/hr Lactated Ringer's (Ringers, Lactated) Confirm Administered Dose 1,000 mls @ as directed .ROUTE .STK-MED ONE Stop: 09/29/16 08:45 Iodine (Iodine 2% Mild Tincture) Confirm Administered Dose 30 ml .ROUTE .STK- MED ONE Stop: 09/29/16 06:22 Last Admin: 09/29/16 09:16 Dose: 18 ml Lidocaine/Sodium Bicarbonate (Buffered Lidocaine 1% In Ns 8.4%) 0.25 ml IV ONETIME PRN PRN Reason: Prior to IV Start Stop: 09/29/16 18:00 Last Admin: 09/29/16 06:39 Dose: 0.25 ml Midazolam HCl (Versed 1 Mg/Ml) Confirm Administered Dose 2 mg .ROUTE .STK-MED ONE Stop: 09/29/16 06:53 Naloxone HCl (Narcan) 0.1 mg IVPUSH Q5M PRN PRN Reason: Oversedation Stop: 09/29/16 06:37 Ondansetron HCl (Zofran) Confirm Administered Dose 4 mg .ROUTE .STK-MED ONE Stop: 09/29/16 09:55 Phenylephrine HCl (Phenylephrine In Ns 100 Mcg/Ml) Confirm Administered Dose 1 mg .ROUTE .STK-MED ONE Stop: 09/29/16 08:28 Pneumococcal 13-Valent Conj Vacc (Prevnar 13) 0.5 ml IM .ONCE ONE Stop: 09/29/16 09:49 Last Admin: 09/30/16 12:34 Dose: 0.5 ml Propofol (Diprivan 20 Ml) Confirm Administered Dose 200 mg .ROUTE .STK-MED ONE Stop: 09/29/16 06:51 Ropivacaine (Naropin 0.5%) Confirm Administered Dose 30 ml .ROUTE .STK-MED ONE Stop: 09/29/16 06:00 Sodium Chloride (Saline Flush) 10 ml FLUSH ASDIRECTED PRN PRN Reason: Keep Vein Open Stop: 09/29/16 18:00 Tranexamic Acid (Cyklokapron) Confirm Administered Dose 1,000 mg .ROUTE .STK- MED ONE Stop: 09/29/16 06:50 Last Admin: 09/29/16 09:42 Dose: 1,000 mg Triamcinolone Acetonide (Kenalog-40) Confirm Administered Dose 80 mg .ROUTE .STK -MED ONE Stop: 09/29/16 06:22 Last Admin: 09/29/16 09:56 Dose: 80 mg Vancomycin HCl (Vancomycin) Confirm Administered Dose 1 gm .ROUTE .STK-MED ONE Stop: 09/29/16 06:22 - Exam Wound/Incisions: dressing dry and intact General: alert, cooperative, no acute distress Lungs: Normal respiratory effort Extremities: normal pulses (NVS intact for BUE. Active hand, wrist, elbow motion noted.) - Problem List Review Problem List Initiated/Reviewed/Updated: Yes - My Orders Last 24 Hours: Active Orders 24 hr Category Date Time Status Ready for Discharge [RC] PER UNIT ROUTINE Care 09/30/16 06:53 Active Aspirin [Ecotrin] Med 09/30/16 09:00 Active 325 mg PO DAILY Carvedilol [Coreg] Med 09/29/16 21:00 Active 12.5 mg PO BID DULoxetine [Cymbalta] Med 09/30/16 09:00 Active 20 mg PO DAILY Docusate Sodium [Colace] Med 09/29/16 21:00 Active 100 mg PO BID Levothyroxine Med 09/30/16 09:00 Active 75 mcg PO DAILY Loratadine [Claritin] Med 09/30/16 09:00 Active 10 mg PO DAILY Pantoprazole [Protonix] Med 09/30/16 09:00 Active 40 mg PO DAILY Patient's Own Medication [Ptom] Med 09/30/16 09:00 Active 0 each PO DAILY Simvastatin [Zocor] Med 09/30/16 09:00 Active 10 mg PO DAILY Vitamin B Complex with C [Super B With Vitamin C] Med 09/30/16 09:00 Active 1 cap PO DAILY Medication Orders Hydrocodone Bitart/Acetaminophen ([place] 325-5 Mg) 1 - 2 tab PO Q4H PRN PRN Reason: Pain Last Admin: 09/30/16 12:33 Dose: 2 tab Admin: 09/30/16 07:28 Dose: 2 tab Admin: 09/29/16 21:07 Dose: 2 tab Admin: 09/29/16 17:07 Dose: 2 tab Admin: 09/29/16 11:26 Dose: 2 tab Aspirin (Ecotrin) 325 mg PO DAILY [facility] Last Admin: 09/30/16 09:18 Dose: Not Given Admin: 09/30/16 07:29 Dose: 325 mg Bisacodyl (Dulcolax) 5 mg PO DAILY PRN PRN Reason: Constipation Carvedilol (Coreg) 12.5 mg PO BID [facility] Last Admin: 09/30/16 09:18 Dose: Not Given Admin: 09/30/16 07:29 Dose: 12.5 mg Admin: 09/29/16 21:03 Dose: Admin: 09/29/16 19:30 Dose: 12.5 mg Docusate Sodium (Colace) 100 mg PO BID [facility] Last Admin: 09/30/16 09:18 Dose: Not Given Admin: 09/30/16 07:29 Dose: 100 mg Admin: 09/29/16 21:02 Dose: Admin: 09/29/16 19:31 Dose: 100 mg Duloxetine HCl (Cymbalta) 20 mg PO DAILY [facility] Last Admin: 09/30/16 09:18 Dose: Not Given Admin: 09/30/16 07:28 Dose: 20 mg Levothyroxine Sodium (Levothyroxine) 75 mcg PO DAILY [facility] Last Admin: 09/30/16 09:24 Dose: Not Given Admin: 09/30/16 07:28 Dose: 75 mcg Loratadine (Claritin) 10 mg PO DAILY [facility] Last Admin: 09/30/16 09:18 Dose: Not Given Admin: 09/30/16 07:29 Dose: 10 mg Magnesium Hydroxide (Milk Of Magnesia) 30 ml PO BID PRN PRN Reason: Constipation Morphine Sulfate (Morphine) 1 mg IVPUSH Q2H PRN PRN Reason: Pain Last Admin: 09/30/16 04:57 Dose: 1 mg Admin: 09/30/16 01:00 Dose: 1 mg Admin: 09/29/16 22:53 Dose: 1 mg Admin: 09/29/16 20:39 Dose: 1 mg Multivitamins (Thera) 1 each PO WITHBREAKFAST [facility] Last Admin: 09/30/16 06:58 Dose: 1 each Admin: 09/29/16 11:42 Dose: Not Given Ondansetron HCl (Zofran) 4 mg IVPUSH Q6H PRN PRN Reason: NAUSEA Pantoprazole Sodium (Protonix) 40 mg PO DAILY [facility] Last Admin: 09/30/16 09:18 Dose: Not Given Admin: 09/30/16 07:29 Dose: 40 mg Lutein/Zeaxanthin [ Lutein-Zeaxanthin 25 -5 Mg Sfgl] 1 Cap 0 each PO DAILY [facility] Last Admin: 09/30/16 09:19 Dose: Not Given Senna (Senna) 8.6 mg PO BID PRN PRN Reason: Constipation Last Admin: 09/30/16 07:29 Dose: 8.6 mg Simvastatin (Zocor) 10 mg PO DAILY [facility] Last Admin: 09/30/16 09:19 Dose: Not Given Admin: 09/30/16 07:29 Dose: 10 mg Vitamin B Complex/Vitamin C (Super B With Vitamin C) 1 cap PO DAILY [facility] Last Admin: 09/30/16 09:19 Dose: Not Given Admin: 09/30/16 07:28 Dose: 1 cap - Assessment Assessment (Free Text/Narrative):: POD#1 - left RTSA - Plan Plan (Free Text/Narrative):: 1. Hgb 12.3. 2. Outpatient therapy. 3. Discharge to [facility] unit today. The pt's case was discussed with Dr. Pimentel.
--- NOTE | 2016-10-03 08:23 | PCM.DCSUM1 ---
Discharge Summary - Hospital Course Brief History: Holly is a 71 yo female who underwent left reverse total shoulder arthroplasty with Dr. Pimentel on 09-29-16. The procedure was completed under general anesthesia with regional block. The pt tolerated the procedure well and was admitted to the Medical-Surgical Unit. Medical management was provided by the Hospitalist service. The pt's Hospital course was uneventful. The pt's Hgb on POD#1 was 12.3. On POD#1,325mg ASA daily was initiated for VTE prophylaxis. SCDs and TEDs were also used. A Mepilex dressing was placed at the incision site at the time of surgery and remained clean and dry. The pt participated in P.T. and O.T. and progressed well. On POD#1, the pt was deemed appropriate to discharge to the [facility] in [place], [place]. - Discharge Data Discharge Date: 10/03/16 Discharge Disposition: DC/Tfer to Inpt Rehab Fac 62 Condition: Good - Patient Summary/Data Operative Procedure(s) Performed: left reverse total shoulder arthroplasty Consults: Consultations 09/29/16 06:21 Consult to Case Management [CONS] Routine Consult to Physician [CONS] Routine OT Evaluation and Treatment [CONS] Routine 09/29/16 06:26 PT Evaluation and Treatment [CONS] Routine - Patient Instructions Diet: Usual Diet as Tolerated Activity: Apply Ice, As Tolerated, Elevate Extremity Activity, Other: No use of left arm. Driving: Do Not Drive Showering/Bathing: May Shower Showering/Bathing, Other: Keep the dressing in place with showering. Wound/Incision Care: Keep Operative Site/Wound Site Clean and Dry Notify Provider of: Fever, Increased Pain, Swelling and Redness, Drainage, Nausea and/or Vomiting Other/Special Instructions: Please get up and moving around every hour while awake. This helps to prevent blood clots. Please take a 325mg aspirin daily. This also helps to prevent blood clots. The aspirin is not being used for pain management, but rather for blood clot prevention so please try not to miss a dose of the medication. Please wear the immobilizer as directed. You may schedule for physical therapy. The therapist will use the [facility] reverse total shoulder arthroplasty protocol. Place ice to the limb. Have a towel between the blue ice pad and your skin. Keep the Mepilex dressing in place until follow-up at the Clinic. You may use the pain medication as needed. The medication may cause drowsiness and/or constipation. Please contact your primary care provider for instructions if you are constipated. Please call the Clinic with other concerns - [phone]. - Discharge Plan Prescriptions/Med Rec: Acetaminophen/HYDROcodone [[place] 325-5 MG] 1 - 2 tab PO Q4H PRN #50 tablet PRN Reason: Pain Home Medications: Home Meds Carvedilol [Coreg] 12.5 mg PO BID 09/26/16 [History] Cyclobenzaprine [Flexeril] 5 mg PO ASDIRECTED PRN 09/26/16 [History] DULoxetine [Cymbalta] 20 mg PO DAILY 09/26/16 [History] Esomeprazole [NexIUM] 40 mg PO DAILY 09/26/16 [History] Fexofenadine [Gabriela] 180 mg PO DAILY 09/26/16 [History] Levothyroxine 75 mcg PO DAILY 09/26/16 [History] Lutein/Zeaxanthin [Lutein-Zeaxanthin 25-5 mg Sfgl] 1 cap PO DAILY 09/26/16 [ History] Pravastatin [Pravachol] 20 mg PO DAILY 09/26/16 [History] Ubidecarenone [Co Q-10] 200 mg PO DAILY 09/26/16 [History] Vitamin B Complex 1 cap PO DAILY 09/26/16 [History] Acetaminophen/HYDROcodone [[place] 325-5 MG] 1 - 2 tab PO Q4H PRN #50 tablet 09/30 [Rx] Aspirin [Ecotrin] 325 mg PO DAILY tab.ec 09/30/16 [Rx] Bisacodyl [Dulcolax] 5 mg PO DAILY PRN #0 tablet 09/30/16 [Rx] Docusate Sodium [Colace] 100 mg PO BID cap 09/30/16 [Rx] Magnesium Hydroxide [Milk of Magnesia] 30 ml PO BID PRN #0 cup 09/30/16 [Rx] Multivitamins,Therapeutic [Thera] 1 each PO WITHBREAKFAST tablet 09/30/16 [Rx] Sennosides [Senna] 8.6 mg PO BID PRN #0 tablet 09/30/16 [Rx] Patient Handouts: Shoulder Joint Replacement, Shoulder Joint Replacement, Care After Referrals: Salma Dallas PA-C [Physician Loop Puller] - - Patient Data Vitals - Most Recent: Last Vital Signs Temp 98.1 F 09/30/16 08:00 Pulse 81 09/30/16 08:00 Resp 20 09/30/16 08:00 BP 132/68 09/30/16 08:00 Pulse Ox 94 L 09/30/16 08:00 Weight - Most Recent: 227 lb Med Orders - Current: Current Medications Discontinued Medications Hydrocodone Bitart/Acetaminophen ([place] 325-5 Mg) 1 - 2 tab PO Q4H PRN PRN Reason: Pain Last Admin: 09/30/16 12:33 Dose: 2 tab Aspirin (Ecotrin) 325 mg PO DAILY [facility] Last Admin: 09/30/16 09:18 Dose: Not Given Bisacodyl (Dulcolax) 5 mg PO DAILY PRN PRN Reason: Constipation Bupivacaine HCl (Marcaine 0.25%) Confirm Administered Dose 60 ml .ROUTE .STK- MED ONE Stop: 09/29/16 06:22 Last Admin: 09/29/16 09:22 Dose: 14 ml Carvedilol (Coreg) 12.5 mg PO BID [facility] Last Admin: 09/30/16 09:18 Dose: Not Given Cefazolin Sodium (Ancef) Confirm Administered Dose 2 gm .ROUTE .STK-MED ONE Stop: 09/29/16 06:22 Cefazolin Sodium (Ancef) Confirm Administered Dose 2 gm .ROUTE .STK-MED ONE Stop: 09/29/16 07:34 Last Admin: 09/29/16 09:17 Dose: 2 gm Clindamycin Phosphate (Cleocin) Confirm Administered Dose 900 mg .ROUTE .STK- MED ONE Stop: 09/29/16 06:22 Docusate Sodium (Colace) 100 mg PO BID [facility] Last Admin: 09/30/16 09:18 Dose: Not Given Duloxetine HCl (Cymbalta) 20 mg PO DAILY [facility] Last Admin: 09/30/16 09:18 Dose: Not Given Ephedrine Sulfate (Ephedrine In Ns) Confirm Administered Dose 25 mg .ROUTE .STK- MED ONE Stop: 09/29/16 08:28 Epinephrine HCl (Adrenalin 1:1000) Confirm Administered Dose 1 mg .ROUTE .STK- MED ONE Stop: 09/29/16 06:00 Famotidine (Pepcid) 20 mg IVPUSH Q12H [facility] Last Admin: 09/29/16 11:42 Dose: Not Given Fentanyl (Sublimaze) Confirm Administered Dose 100 mcg .ROUTE .STK-MED ONE Stop: 09/29/16 06:51 Fentanyl (Sublimaze) Confirm Administered Dose 100 mcg .ROUTE .STK-MED ONE Stop: 09/29/16 08:34 Fentanyl (Sublimaze) 50 mcg IVPUSH Q5M PRN PRN Reason: Pain Stop: 09/29/16 10:46 Last Admin: 09/29/16 10:44 Dose: 50 mcg Lactated Ringer's (Ringers, Lactated) 1,000 mls @ 125 mls/hr IV ASDIRECTED [facility] Stop: 09/29/16 23:00 Last Admin: 09/29/16 06:40 Dose: 125 mls/hr Lidocaine HCl (Xylocaine-Mpf 1%) Confirm Administered Dose 4 mls @ as directed .ROUTE .STK-MED ONE Stop: 09/29/16 05:59 Cefazolin Sodium/Dextrose 2 gm (/ Premix) 50 mls @ 100 mls/hr IV Q8H [facility] Last Admin: 09/30/16 07:10 Dose: 100 mls/hr Lactated Ringer's (Ringers, Lactated) Confirm Administered Dose 1,000 mls @ as directed .ROUTE .STK-MED ONE Stop: 09/29/16 08:45 Iodine (Iodine 2% Mild Tincture) Confirm Administered Dose 30 ml .ROUTE .STK- MED ONE Stop: 09/29/16 06:22 Last Admin: 09/29/16 09:16 Dose: 18 ml Levothyroxine Sodium (Levothyroxine) 75 mcg PO DAILY [facility] Last Admin: 09/30/16 09:24 Dose: Not Given Lidocaine/Sodium Bicarbonate (Buffered Lidocaine 1% In Ns 8.4%) 0.25 ml IV ONETIME PRN PRN Reason: Prior to IV Start Stop: 09/29/16 18:00 Last Admin: 09/29/16 06:39 Dose: 0.25 ml Loratadine (Claritin) 10 mg PO DAILY [facility] Last Admin: 09/30/16 09:18 Dose: Not Given Magnesium Hydroxide (Milk Of Magnesia) 30 ml PO BID PRN PRN Reason: Constipation Midazolam HCl (Versed 1 Mg/Ml) Confirm Administered Dose 2 mg .ROUTE .STK-MED ONE Stop: 09/29/16 06:53 Morphine Sulfate (Morphine) 1 mg IVPUSH Q2H PRN PRN Reason: Pain Last Admin: 09/30/16 04:57 Dose: 1 mg Multivitamins (Thera) 1 each PO WITHBREAKFAST [facility] Last Admin: 09/30/16 06:58 Dose: 1 each Naloxone HCl (Narcan) 0.1 mg IVPUSH Q5M PRN PRN Reason: Oversedation Stop: 09/29/16 06:37 Ondansetron HCl (Zofran) 4 mg IVPUSH Q6H PRN PRN Reason: NAUSEA Ondansetron HCl (Zofran) Confirm Administered Dose 4 mg .ROUTE .STK-MED ONE Stop: 09/29/16 09:55 Pantoprazole Sodium (Protonix) 40 mg PO DAILY [facility] Last Admin: 09/30/16 09:18 Dose: Not Given Lutein/Zeaxanthin [ Lutein-Zeaxanthin 25 -5 Mg Sfgl] 1 Cap 0 each PO DAILY [facility] Last Admin: 09/30/16 09:19 Dose: Not Given Phenylephrine HCl (Phenylephrine In Ns 100 Mcg/Ml) Confirm Administered Dose 1 mg .ROUTE .STK-MED ONE Stop: 09/29/16 08:28 Pneumococcal 13-Valent Conj Vacc (Prevnar 13) 0.5 ml IM .ONCE ONE Stop: 09/29/16 09:49 Last Admin: 09/30/16 12:34 Dose: 0.5 ml Propofol (Diprivan 20 Ml) Confirm Administered Dose 200 mg .ROUTE .STK-MED ONE Stop: 09/29/16 06:51 Ropivacaine (Naropin 0.5%) Confirm Administered Dose 30 ml .ROUTE .STK-MED ONE Stop: 09/29/16 06:00 Senna (Senna) 8.6 mg PO BID PRN PRN Reason: Constipation Last Admin: 09/30/16 07:29 Dose: 8.6 mg Simvastatin (Zocor) 10 mg PO DAILY [facility] Last Admin: 09/30/16 09:19 Dose: Not Given Sodium Chloride (Saline Flush) 10 ml FLUSH ASDIRECTED PRN PRN Reason: Keep Vein Open Stop: 09/29/16 18:00 Tranexamic Acid (Cyklokapron) Confirm Administered Dose 1,000 mg .ROUTE .STK- MED ONE Stop: 09/29/16 06:50 Last Admin: 09/29/16 09:42 Dose: 1,000 mg Triamcinolone Acetonide (Kenalog-40) Confirm Administered Dose 80 mg .ROUTE .STK -MED ONE Stop: 09/29/16 06:22 Last Admin: 09/29/16 09:56 Dose: 80 mg Vancomycin HCl (Vancomycin) Confirm Administered Dose 1 gm .ROUTE .STK-MED ONE Stop: 09/29/16 06:22 Vitamin B Complex/Vitamin C (Super B With Vitamin C) 1 cap PO DAILY [facility] Last Admin: 09/30/16 09:19 Dose: Not Given *Q Meaningful Use (DIS) - VTE *Q VTE Criteria *Q: - Stroke *Q Stroke Criteria *Q: - AMI *Q AMI Criteria *Q:
--- NOTE | 2016-10-05 21:40 | OR ---
DATE OF OPERATION: 09/29/2016 SURGEON: Scott Pimentel MD OPERATION PERFORMED: Left reverse total shoulder arthroplasty. PREOPERATIVE DIAGNOSIS: Left shoulder osteoarthrosis. POSTOPERATIVE DIAGNOSIS: Left shoulder osteoarthrosis. ANESTHESIA: General endotracheal intubation with regional block. ANESTHESIA PROVIDER: Armin Wood MD. ASSISTANTS: Salma Dallas PA-C and Nahomy Dalton LPN. ESTIMATED BLOOD LOSS: 200 mL. COMPLICATIONS: None. CONDITION: Stable. IMPLANTS: 1. Arthrex 36 mm glenosphere. 2. Arthrex size 7 stem 135 degree. 3. Arthrex 3-mm polyethylene insert. 4. Arthrex small glenosphere base plate with two 4.5 locking screws and 20-mm compression screw. DESCRIPTION OF PROCEDURE: The patient was identified in the preop holding area. Proper site was marked and identified by the surgeon. The patient was taken back to the operating theater where after adequate anesthesia, the patient's left upper extremity was sterilely prepped and draped in the usual sterile fashion. OR time-out was performed. The patient received 2 g IV Ancef. At this time, incision was made for the deltopectoral approach. The cephalic vein was identified and the interval was identified. The subacromial and subdeltoid space was then freed. The clavipectoral fascia was then incised. The conjoined tendon was then retracted medially and a retractor was placed out laterally under the deltoid. At this time, the subscapularis tendon was identified along with the biceps tendon and interval biceps tendon, and then was tenotomized and was tenodesed with #2 FiberWire subpectorals. At this time, the biceps tendon interval was then opened and the subscapularis tendon was then tagged in the upper outer edge, and then was taken down. The patient was noted to have a supraspinatus tear along with poor tissue quality and thinning of the entire rotator cuff at this time. At this time, it was decided that we do a reverse total shoulder for this patient secondary to her age and the appearance of the tendon. At this time, the humeral head was dislocated from the shoulder. A guide was placed down the canal. A neck cut guide was then placed and was cut to 30 degrees retroversion. We were able to broach up to a size 7 stem at this time, which was found to be rotationally and vertical stable. At this time, attention was turned to the glenoid. The remainder of the biceps tendon as well as the anterior posterior labrum were then resected out. A capsular release circumferentially was done around the glenoid at this time, and there was adequate exposure. A guidepin was placed in a center-center position and the small trial had adequate coverage at this time. The central screw was drilled, and then reamer was placed. Half-negron reamer was then brought back to good cancellous bleeding bone and the small glenosphere base plate was impacted into place in the proper orientation. Anterior and superior locking screws were then placed, and a central nonlocking screw was tightened before the 2 locking screws were locked into the base plate. Once this was done, attention was turned back to the humerus. A trial of 36 mm glenosphere was placed and a size 7 stem with 135-degree 3-mm insert was then placed. The shoulder was reduced and was found to have adequate tension of the deltoid, but not over tensioned along with full motion with no signs instability. At this time, a size 7 stem with 135-degree humeral component was impacted into place with a 3-mm insert. A 36-mm +0 glenosphere was also impacted into place. The patient's shoulder was reduced. It was found to be in adequate position on fluoroscopic views. At this time, 1 liter dilute Betadine solution was irrigated through the shoulder along with 3 L pulse lavage irrigation with Ancef. The periarticular injection was then completed. At this time, the subscapularis tendon was sutured through the bicipital groove with using two #2 FiberWire. A #2 FiberWire was used to tag the deltopectoral interval, 2-0 Vicryl was used subcutaneously, and Prineo was used for the skin. The patient was placed in a pillow sling and was sent to PACU in stable condition. CARRINGTON /[id number]
== END 2016-09-30 13:14 | DRG 483 ==
LOC: JD.ICU 06:06
PROVIDERS: ADMIT Orthopaedic Surgery; ATTEND Orthopaedic Surgery
PROC: 0RRK0JZ Replacement of Left Shoulder Joint with Synthetic Substitute, Open Approach (ICD-10-PCS; principal; 2016-09-29)
DX: M19.012 Primary osteoarthritis, left shoulder (principal); Z88.8 Allergy status to other drugs, medicaments and biological substances; Z88.1 Allergy status to other antibiotic agents; Z88.2 Allergy status to sulfonamides; Z91.048 Other nonmedicinal substance allergy status; Z79.899 Other long term (current) drug therapy; I10 Essential (primary) hypertension; E03.9 Hypothyroidism, unspecified; Z96.653 Presence of artificial knee joint, bilateral; Z87.891 Personal history of nicotine dependence; E78.5 Hyperlipidemia, unspecified; F32.9 Major depressive disorder, single episode, unspecified; M06.9 Rheumatoid arthritis, unspecified; M32.9 Systemic lupus erythematosus, unspecified; K21.9 Gastro-esophageal reflux disease without esophagitis; J30.2 Other seasonal allergic rhinitis; Z23 Encounter for immunization
CPT/HCPCS: 01630; 36415; 64415; 73020-26-LT; 73020-LT; 76000; 76000-26; 80053; 85025; 90670; 97110-GP; 97116-GP; 97161-GP; 97165-GO; 97530-GO; 97535-GO; A9270; A9270-GY; C1713; C1776; G0009; J0171; J0690; J2250; J2270; J2405; J2704; J2795; J3010; J3301; J3370; J3490; J7050; J7120

== ENCOUNTER 2018-09-27 07:56 | Inpatient (IN) | payer MEDICARE, OTHER ==
[~2018-09-27 07:56] MED LIST changes: +EPINEPHrine 1 MG/ML SDV ONE; -EPINEPHrine 1:1000 1 MG/ML SDV ONE; +Lactated Ringers 1,000 ML IV SCH; -Lidocaine 1% 4 ML ONE; +Lidocaine 1%/Sod Bicarbonate in NS 8.4% 1 ML Syringe IDERM PRN; +Sodium Chloride 0.9% 10 ML Syringe FLUSH PRN
[2018-09-27] MEDS ORDERED: fentaNYL 100 MCG/2 ML SDV ONE ×4 (08:11→12:14)
[2018-09-27] MEDS ORDERED: Midazolam 1 MG/ML 2 ML SDV ONE ×2 (08:11→12:15)
[2018-09-27] MEDS ORDERED: Rocuronium 50 MG/5 ML Vial ONE (09:14)
[2018-09-27] MEDS ORDERED: Ondansetron 4 MG/2 ML SDV ONE ×2 (09:14→09:40)
[2018-09-27] MEDS ORDERED: Propofol 200 MG/20 ML SDV ONE ×2 (09:15→09:36)
[2018-09-27] MEDS ORDERED: Lidocaine 1% 6 ML ONE ×2 (09:37→12:17)
[2018-09-27] MEDS ORDERED: ceFAZolin 1 GM Vial ONE ×2 (09:41→09:57)
[2018-09-27] MEDS ORDERED: Iodine/Sodium Iodide 2% Tincture 30 ML Bottle ONE (09:57)
[2018-09-27] MEDS ORDERED: Vancomycin 1 GM SDV ONE (09:57)
--- NOTE | 2018-09-27 10:08 | PCM.SN ---
- Free Text/Narrative Note: Interscalene nerve block note Date: 09/27/2018 Start: 916 Time Out: 921 Stop: 928 Procedure: Right interscalene block under US guidance for postoperative pain control Patient chart reviewed, risk/benefits discussed with patient, consent obtained. Patient positioned supine, monitors/alarms on, oxygen placed via nasal cannula at 2 LPM. Right shoulder prepped with chloraprep x2. Sterile drapes placed with aseptic technique. Under US guidance, right subclavian artery visualized along with the brachial plexus. Plexus followed cephalad up to C6 cricoid level, and area localized with 2mls of 1% lidocaine. 22gauge 2 inch stimiplex needle inserted under US and guided to brachial plexus C5-C6 trunks with 0.44mV with stimulation of biceps noted. Stimulation abolished at 0.2mVs. 1ml of Normal Saline injected with loss of stimulation. Incremental injection of 5mls with negative aspiration prior to each injection of 0.5% ropivacaine with 1:200,000 epinephrine. Total volume=30mls. Refer to nurses notes for vital signs. Marcelo Mtz CRNA
[2018-09-27] MEDS ORDERED: Ondansetron 4 MG/2 ML SDV IVPUSH PRN ×2 (11:30→13:07)
[2018-09-27] MEDS ORDERED: Bisacodyl 5 MG Tab PO PRN (11:30)
[2018-09-27] MEDS ORDERED: Morphine 2 MG/ML Syringe IVPUSH PRN (11:30)
[2018-09-27] MEDS ORDERED: Sennosides 8.6 MG Tab PO PRN (11:30)
[2018-09-27] MEDS ORDERED: Naloxone 0.4 MG/ML SDV IVPUSH PRN (11:30)
[2018-09-27] MEDS ORDERED: Magnesium Hydroxide 400 MG/5 ML Susp 30 ML Cup PO PRN (11:30)
[2018-09-27] MEDS ORDERED: Neostigmine Methylsulfate 1 MG/ML 5 ML Syringe ONE (12:18)
--- NOTE | 2018-09-27 12:29 | CR ---
Right shoulder: Two fluoroscopic spot views of the right shoulder were obtained utilizing C-arm device. Comparison: No prior right shoulder exam. Reverse right shoulder prosthesis is seen. Components are aligned. Underlying bony structures are grossly intact. Fluoroscopy time given as 1.8 seconds. Impression: 1. Procedural study. Diagnostic code #2
--- NOTE | 2018-09-27 13:06 | PCM.POSTAN ---
POST ANESTHESIA ASSESSMENT - MENTAL STATUS Mental Status: Alert - VITAL SIGNS Pulse Rate: 84 SaO2: 97 Resp Rate: 20 Blood Pressure: 143/99 Temperature: 36.4 C - RESPIRATORY Respiratory Status: Respiratory Rate WNL, Airway Patent, O2 Saturation Stable, Supplemental Oxygen - CARDIOVASCULAR CV Status: Pulse Rate WNL, Blood Pressure Stable - GASTROINTESTINAL GI Status: No Symptoms - PAIN Pain Score: 4 (headache ) - POST OP HYDRATION Hydration Status: Adequate & Stable
[2018-09-27] MEDS ORDERED: diphenhydrAMINE 50 MG/ML SDV IVPUSH PRN (13:07)
[2018-09-27] MEDS ORDERED: fentaNYL 100 MCG/2 ML SDV IVPUSH PRN (13:07)
[2018-09-27] MEDS ORDERED: Acetaminophen 325 MG Tab PO ONE (13:08)
--- NOTE | 2018-09-27 13:11 | PCM.PREANE ---
Preanesthetic Assessment - Anesthesia/Transfusion/Family Hx Anesthesia History: Prior Anesthesia Reaction Type of Anesthesia Reaction: Excessive Nausea/Vomiting Family History of Anesthesia Reaction: No Transfusion History: No Prior Transfusion(s) - Review of Systems General: No Symptoms Pulmonary: No Symptoms Cardiovascular: No Symptoms, Other (HTN) Gastrointestinal: No Symptoms, Other (GERD, no smymptoms on medication. ) Neurological: Pre-Existing Deficit, Difficulty Walking, Other (Chronic back pain , post back surgery. Uses a walker for ambulation. ) Other: Reports: Neck Pain - Physical Assessment NPO Status Date: 09/26/18 NPO Status Time: 16:30 Pulse: 84 O2 Sat by Pulse Oximetry: 97 Respiratory Rate: 20 Blood Pressure: 143/99 Temperature: 36.4 C Vital Signs: Last Vital Signs Temp 36.4 C 09/27/18 13:06 Pulse 84 09/27/18 13:06 Resp 20 09/27/18 13:06 BP 143/99 H 09/27/18 13:06 Pulse Ox 97 09/27/18 13:06 Height: 1.65 m Weight: 87.543 kg ASA Class: 2 Mental Status: Alert & Oriented x3 Airway Class: Mallampati = 2 Dentition: Reports: Dentures Thyro-Mental Finger Breadths: 3 Mouth Opening Finger Breadths: 3 ROM/Head Extension: Full Lungs: Clear to Auscultation, Normal Respiratory Effort Cardiovascular: Regular Rate, Regular Rhythm - Lab Values: Laboratory Last Values Sodium 133 mEq/L (136-145) L 09/27/18 08:24 Potassium 4.1 mEq/L (3.5-5.1) 09/27/18 08:24 Chloride 99 mEq/L (98-107) 09/27/18 08:24 Carbon Dioxide 23 mEq/L (21-32) 09/27/18 08:24 Anion Gap 15.1 (5-15) H 09/27/18 08:24 BUN 18 mg/dL (7-18) 09/27/18 08:24 Creatinine 0.9 mg/dL (0.55-1.02) 09/27/18 08:24 Est Cr Clr Drug Dosing 48.60 mL/min 09/27/18 08:24 Estimated GFR (MDRD) > 60 mL/min (>60) 09/27/18 08:24 BUN/Creatinine Ratio 20.0 (14-18) H 09/27/18 08:24 Glucose 99 mg/dL (83-115) 09/27/18 08:24 Calcium 9.9 mg/dL (8.5-10.1) 09/27/18 08:24 - Allergies Allergies/Adverse Reactions: Allergies Allergy/AdvReac Type Severity Reaction Status Date / Time Sulfa (Sulfonamide Allergy Intermediate Hives Verified 09/27/18 08:27 Antibiotics) adhesive tape Allergy Rash Verified 09/26/16 12:14 amlodipine Allergy Edema Verified 09/24/18 12:18 bee venom protein (honey bee) Allergy Facial Verified 09/24/18 12:18 Swelling cefadroxil [From Duricef] Allergy Hives Verified 09/27/18 08:46 Cephalosporins Allergy Hives Verified 09/24/18 12:18 ciprofloxacin [From Cipro] Allergy Hives Verified 09/24/18 12:18 clarithromycin [From Biaxin] Allergy Hives Verified 09/24/18 12:18 hydroxyzine [From Atarax] Allergy Hives Verified 09/24/18 12:18 naproxen Allergy Hives Verified 09/24/18 12:18 - Anesthesia Plan Pre-Op Medication Ordered: Other (Scopalamine patch) - Acknowledgements Anesthesia Type Planned: General Anesthesia Pt an Appropriate Candidate for the Planned Anesthesia: Yes Alternatives and Risks of Anesthesia Discussed w Pt/Guardian: Yes Pt/Guardian Understands and Agrees with Anesthesia Plan: Yes PreAnesthesia Questionnaire HEENT History: Reports: Hard of Hearing, Sinusitis, Other (See Below) Other HEENT History: Deviated septum, alyssia bullosa, chronic visual issues Cardiovascular History: Reports: Hypertension, PVD Other Cardiovascular History: Carotic Artherosclerosis, varicose veins, edema Respiratory History: Reports: None Gastrointestinal History: Reports: Colon Polyp, GERD Genitourinary History: Other Genitourinary History: Left renal stent APPLICATIONS TESTER History: Reports: None Musculoskeletal History: Reports: Arthritis, Back Pain, Chronic, Neck Pain, Chronic, Other (See Below) Other Musculoskeletal History: DJD, Raynaud's Neurological History: Reports: Headaches, Chronic, Migraines Other Neuro History: Benign proxismal positional vertigo, spinal stenosis Psychiatric History: Reports: Depression Endocrine/Metabolic History: Reports: Hypothyroidism Other Endocrine/Metabolic History: Fatigue Hematologic History: Reports: None Immunologic History: Reports: None Oncologic (Cancer) History: Reports: None Dermatologic History: Reports: Scleroderma - Past Surgical History HEENT Surgical History: Reports: Adenoidectomy, Tonsillectomy Cardiovascular Surgical History: Reports: Other (See Below) Other Cardiovascular Surgeries/Procedures: Percutaneous Coronary Intervention in 2009 Respiratory Surgical History: Reports: None GI Surgical History: Reports: Colonoscopy Female Surgical History: Reports: Hysterectomy Endocrine Surgical History: Reports: None Other Neurological Surgeries/Procedures: Lumbar puncture Musculoskeletal Surgical History: Reports: Knee Replacement, Shoulder Replacement, Other (See Below) Other Musculoskeletal Surgeries/Procedures:: Bunionectomy Dermatological Surgical History: Reports: None - SUBSTANCE USE Smoking Status *Q: Former Smoker Tobacco Use Within Last Twelve Months: No Second Hand Smoke Exposure: No Recreational Drug Use History: No - HOME MEDS Home Medications: Home Meds Carvedilol [Coreg] 12.5 mg PO BID 09/26/16 [History] Esomeprazole [NexIUM] 40 mg PO DAILY 09/26/16 [History] Levothyroxine 75 mcg PO DAILY 09/26/16 [History] Pravastatin [Pravachol] 40 mg PO BEDTIME 09/26/16 [History] Ubidecarenone [Co Q-10] 200 mg PO BEDTIME 09/26/16 [History] Vitamin B Complex 1 cap PO DAILY 09/26/16 [History] Acetaminophen/HYDROcodone [[place] 325-5 MG] 1 - 2 tab PO Q4H PRN #50 tablet 09/30 [Rx] Aspirin [Ecotrin] 325 mg PO DAILY tab.ec 09/30/16 [Rx] Acetaminophen [Acetaminophen ER] 1,950 mg PO Q6H PRN 09/24/18 [History] Cholecalciferol (Vitamin D3) [Vitamin D3] 5,000 - 10,000 unit PO DAILY 09/24/18 [History] Cyanocobalamin (Vitamin B12) [Vitamin B12] 1,000 mcg PO DAILY 09/24/18 [History] Gabapentin [Neurontin] 200 mg PO BEDTIME 09/24/18 [History] Hydroxychloroquine Sulfate [Plaquenil] 200 mg PO BEDTIME 09/24/18 [History] Ketotifen Fumarate [Alaway] 1 drop OP BID 09/24/18 [History] Sertraline [Zoloft] 100 mg PO DAILY 09/24/18 [History] Triamterene/Hydrochlorothiazid [Triamterene-HCTZ 37.5-25 MG] 1 tab PO DAILY [History] Zicam 2 spray LUCY BID 09/24/18 [History] - CURRENT (IN HOUSE) MEDS Current Meds: Current Medications Bisacodyl (Dulcolax) 5 mg PO DAILY PRN PRN Reason: Constipation Docusate Sodium (Colace) 100 mg PO BID [facility] Lactated Ringer's (Ringers, Lactated) 1,000 mls @ 125 mls/hr IV ASDIRECTED [facility] Stop: 09/27/18 23:00 Last Admin: 09/27/18 08:20 Dose: 125 mls/hr Cefazolin Sodium/Dextrose 2 gm (/ Premix) 50 mls @ 100 mls/hr IV Q8H [facility] Stop: 09/28/18 10:29 Lidocaine/Sodium Bicarbonate (Buffered Lidocaine 1% In Ns 8.4%) 0.25 ml IDERM ONETIME PRN PRN Reason: Prior to IV Start Stop: 09/27/18 18:00 Last Admin: 09/27/18 08:15 Dose: 0.25 ml Magnesium Hydroxide (Milk Of Magnesia) 30 ml PO BID PRN PRN Reason: Constipation Morphine Sulfate (Morphine) 2 mg IVPUSH Q2H PRN PRN Reason: Breakthrough Pain Naloxone HCl (Narcan) 0.1 mg IVPUSH Q5M PRN PRN Reason: Oversedation Ondansetron HCl (Zofran) 4 mg IVPUSH Q6H PRN PRN Reason: Nausea/Vomiting Oxycodone/Acetaminophen (Percocet 325-5 Mg) 1 - 2 tab PO Q4H PRN PRN Reason: Pain Senna (Senna) 8.6 mg PO BID PRN PRN Reason: Constipation Sodium Chloride (Saline Flush) 10 ml FLUSH ASDIRECTED PRN PRN Reason: Keep Vein Open Stop: 09/27/18 18:00 Discontinued Medications Cefazolin Sodium (Ancef) Confirm Administered Dose 2 gm .ROUTE .STK-MED ONE Stop: 09/27/18 09:42 Cefazolin Sodium (Ancef) Confirm Administered Dose 2 gm .ROUTE .STK-MED ONE Stop: 09/27/18 09:58 Epinephrine HCl (Adrenalin) Confirm Administered Dose 1 mg .ROUTE .[facility]-MED ONE Stop: 09/27/18 07:52 Fentanyl (Sublimaze) Confirm Administered Dose 100 mcg .ROUTE .[facility]-MED ONE Stop: 09/27/18 08:12 Fentanyl (Sublimaze) Confirm Administered Dose 100 mcg .ROUTE .ST-MED ONE Stop: 09/27/18 09:16 Fentanyl (Sublimaze) Confirm Administered Dose 100 mcg .ROUTE .[facility]-MED ONE Stop: 09/27/18 09:38 Fentanyl (Sublimaze) Confirm Administered Dose 100 mcg .ROUTE .ST-MED ONE Stop: 09/27/18 12:15 Glycopyrrolate () Confirm Administered Dose 1 mg .ROUTE .[facility] ONE Stop: 09/27/18 12:19 Lidocaine HCl (Xylocaine-Mpf 1%) Confirm Administered Dose 6 mls @ as directed .ROUTE .ST-MED ONE Stop: 09/27/18 09:38 Lidocaine HCl (Xylocaine-Mpf 1%) Confirm Administered Dose 6 mls @ as directed .ROUTE .[facility]-MED ONE Stop: 09/27/18 12:18 Iodine (Iodine 2% Mild Tincture) Confirm Administered Dose 30 ml .ROUTE .[facility]- MED ONE Stop: 09/27/18 09:58 Midazolam HCl (Versed 1 Mg/Ml) Confirm Administered Dose 2 mg .ROUTE .ST-MED ONE Stop: 09/27/18 08:12 Midazolam HCl (Versed 1 Mg/Ml) Confirm Administered Dose 2 mg .ROUTE .ST-MED ONE Stop: 09/27/18 12:16 Neostigmine Methylsulfate (Neostigmine) Confirm Administered Dose 5 mg .ROUTE .ST-MED ONE Stop: 09/27/18 12:19 Ondansetron HCl (Zofran) Confirm Administered Dose 4 mg .ROUTE .ST-MED ONE Stop: 09/27/18 09:15 Ondansetron HCl (Zofran) Confirm Administered Dose 4 mg .ROUTE .ST-MED ONE Stop: 09/27/18 09:41 Propofol (Diprivan 20 Ml) Confirm Administered Dose 200 mg .ROUTE .ST-MED ONE Stop: 09/27/18 09:16 Propofol (Diprivan 20 Ml) Confirm Administered Dose 200 mg .ROUTE .ST-MED ONE Stop: 09/27/18 09:37 Rocuronium Foster (Zemuron) Confirm Administered Dose 50 mg .ROUTE .[facility]-MED ONE Stop: 09/27/18 09:15 Ropivacaine (Naropin 0.5%) Confirm Administered [facility] Stop: 09/27/18 07:53 Tranexamic Acid (Cyklokapron) Confirm Administered Dose 1,000 mg .ROUTE .[facility]- MED ONE Stop: 09/27/18 09:58 Vancomycin HCl (Vancomycin) Confirm Administered Dose 1 gm [facility] Stop: 09/27/18 09:58
--- NOTE | 2018-09-27 13:57 | CR ---
Right shoulder: Single AP view of the right shoulder was obtained utilizing portable technique. Comparison: Previous operative study performed earlier on same day (12:10 PM). Reversed right shoulder prosthesis is seen. Components are aligned. Soft tissue air is noted from the surgical procedure. No acute bony abnormality is appreciated. Impression: 1. Satisfactory radiographic appearance of recently placed right shoulder prosthesis. Diagnostic code #2
--- NOTE | 2018-09-27 16:21 | PCM.CONS ---
H&P History of Present Illness - General Date of Service: 09/27/18 Admit Problem/Dx: Admission Diagnosis/Problem Admission Diagnosis/Problem Shoulder joint pain Source of Information: Patient, Old Records, Provider, RN History Limitations: Reports: No Limitations - History of Present Illness Initial Comments - Free Text/Narative: Holly Rodriguez is a 73 yo female patient of Dr. Pimentel who is post-operative day 0 of right reverse TSA. Hospital medicine was consulted for post-operative medical care. At this time she is resting comfortably in bed. Pain is controlled. She denies any chest pain, shortness of breath, palpitations, nausea , or vomiting. She does have a cough and was encouraged to continue using her IS. She carries a history of: BPPV, CAD, Connective tissue disease, GERD, hypothyroidism, scleroderma, polyarthralgia, arthritis, depression, DJD, hx/o renal stent, HTN, PVD, Raynaud disease, spinal stenosis, varicose veins, chronic back pain, migraines, edema, deviated septum, alyssia bullosa. She is a former smoker. She is a full code. Her primary care provider is Dr. Valladares. Right Shoulder Pain Score (Numeric/FACES): 9 - Related Data Allergies/Adverse Reactions: Allergies Allergy/AdvReac Type Severity Reaction Status Date / Time Sulfa (Sulfonamide Allergy Intermediate Hives Verified 09/27/18 08:27 Antibiotics) adhesive tape Allergy Rash Verified 09/26/16 12:14 amlodipine Allergy Edema Verified 09/24/18 12:18 bee venom protein (honey bee) Allergy Facial Verified 09/24/18 12:18 Swelling cefadroxil [From Duricef] Allergy Hives Verified 09/27/18 08:46 Cephalosporins Allergy Hives Verified 09/24/18 12:18 ciprofloxacin [From Cipro] Allergy Hives Verified 09/24/18 12:18 clarithromycin [From Biaxin] Allergy Hives Verified 09/24/18 12:18 hydroxyzine [From Atarax] Allergy Hives Verified 09/24/18 12:18 naproxen Allergy Hives Verified 09/24/18 12:18 Home Medications: Home Meds Carvedilol [Coreg] 12.5 mg PO BID 09/26/16 [History] Esomeprazole [NexIUM] 40 mg PO DAILY 09/26/16 [History] Levothyroxine 75 mcg PO DAILY 09/26/16 [History] Pravastatin [Pravachol] 40 mg PO BEDTIME 09/26/16 [History] Ubidecarenone [Co Q-10] 200 mg PO BEDTIME 09/26/16 [History] Vitamin B Complex 1 cap PO DAILY 09/26/16 [History] Aspirin [Ecotrin] 325 mg PO DAILY tab.ec 09/30/16 [Rx] Cholecalciferol (Vitamin D3) [Vitamin D3] 5,000 - 10,000 unit PO DAILY 09/24/18 [History] Cyanocobalamin (Vitamin B12) [Vitamin B12] 1,000 mcg PO DAILY 09/24/18 [History] Gabapentin [Neurontin] 200 mg PO BEDTIME 09/24/18 [History] Hydroxychloroquine Sulfate [Plaquenil] 200 mg PO BEDTIME 09/24/18 [History] Ketotifen Fumarate [Alaway] 1 drop OP BID 09/24/18 [History] Sertraline [Zoloft] 100 mg PO DAILY 09/24/18 [History] Triamterene/Hydrochlorothiazid [Triamterene-HCTZ 37.5-25 MG] 1 tab PO DAILY [History] Zicam 2 spray LUCY BID 09/24/18 [History] Acetaminophen [Acetaminophen ER] 1,950 mg PO Q6H PRN #0 09/27/18 [Rx] Acetaminophen/oxyCODONE [Percocet 325-5 MG] 1 - 2 tab PO Q6H PRN #60 tablet [Rx] Bisacodyl [Dulcolax] 5 mg PO DAILY PRN tablet 09/27/18 [Rx] Docusate Sodium [Colace] 100 mg PO BID cap 09/27/18 [Rx] Magnesium Hydroxide [Milk of Magnesia] 30 ml PO BID PRN cup 09/27/18 [Rx] Sennosides [Senna] 8.6 mg PO BID PRN tablet 09/27/18 [Rx] Past Medical History HEENT History: Reports: Hard of Hearing, Sinusitis, Other (See Below) Other HEENT History: Deviated septum, alyssia bullosa, chronic visual issues Cardiovascular History: Reports: Hypertension, PVD Other Cardiovascular History: Carotic Artherosclerosis, varicose veins, edema Respiratory History: Reports: None Gastrointestinal History: Reports: Colon Polyp, GERD Genitourinary History: Other Genitourinary History: Left renal stent 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: Musculoskeletal History: Reports: Arthritis, Back Pain, Chronic, Neck Pain, Chronic, Other (See Below) Other Musculoskeletal History: DJD, Raynauds, osteoarthritis, Rhematoid arthritits Neurological History: Reports: Headaches, Chronic, Migraines Other Neuro History: Benign proxismal positional vertigo, spinal stenosis Psychiatric History: Reports: Depression Endocrine/Metabolic History: Reports: Hypothyroidism Other Endocrine/Metabolic History: Fatigue Hematologic History: Reports: None Immunologic History: Reports: Other (See Below) Other Immunologic History: autoimmune scleroderma Oncologic (Cancer) History: Reports: None Dermatologic History: Reports: Scleroderma - Infectious Disease History Infectious Disease History: Reports: Chicken Pox, Influenza, Measles - Past Surgical History HEENT Surgical History: Reports: Adenoidectomy, Tonsillectomy Cardiovascular Surgical History: Reports: Other (See Below) Other Cardiovascular Surgeries/Procedures: Percutaneous Coronary Intervention in 2008 Respiratory Surgical History: Reports: None GI Surgical History: Reports: Colonoscopy Female Surgical History: Reports: Hysterectomy Endocrine Surgical History: Reports: None Other Neurological Surgeries/Procedures: Lumbar puncture Musculoskeletal Surgical History: Reports: Knee Replacement, Shoulder Replacement, Other (See Below) Other Musculoskeletal Surgeries/Procedures:: Bunionectomy Dermatological Surgical History: Reports: None Social & Family History - Family History Family Medical History: Noncontributory - Tobacco Use Smoking Status *Q: Former Smoker Used Tobacco, but Quit: Yes Month/Year Tobacco Last Used: 1967 Second Hand Smoke Exposure: No - Caffeine Use Caffeine Use: Reports: Coffee, Soda, Tea - Recreational Drug Use Recreational Drug Use: No Drug Use in Last 12 Months: No H&P Review of Systems - Review of Systems: Review Of Systems: See Below General: Reports: No Symptoms. Denies: Fever, Chills, Malaise, Fatigue HEENT: Reports: No Symptoms. Denies: Headaches, Sore Throat Pulmonary: Reports: Cough. Denies: Shortness of Breath, Wheezing, Pleuritic Chest Pain, Sputum Cardiovascular: Reports: No Symptoms. Denies: Chest Pain, Palpitations, Dyspnea on Exertion, Edema Gastrointestinal: Reports: No Symptoms. Denies: Abdominal Pain, Constipation, Diarrhea, Nausea, Vomiting Genitourinary: Reports: No Symptoms. Denies: Pain Musculoskeletal: Reports: Shoulder Pain (right ) Skin: Reports: No Symptoms Psychiatric: Reports: No Symptoms. Denies: Confusion Neurological: Reports: No Symptoms Hematologic/Lymphatic: Reports: No Symptoms Immunologic: Reports: No Symptoms Exam - Exam Exam: See Below - Vital Signs Vital Signs: Last Vital Signs Temp 98.7 F 09/27/18 13:40 Pulse 65 09/27/18 13:40 Resp 10 L 09/27/18 13:40 BP 131/74 09/27/18 13:40 Pulse Ox 96 09/27/18 14:28 Weight: 193 lb - Exam Quality Assessment: DVT Prophylaxis General: Alert, Oriented, Cooperative. No: Mild Distress HEENT: Conjunctiva Clear, EACs Clear, EOMI, Hearing Intact, Mucosa Moist & Enders , Posterior Pharynx Clear, PERRLA Neck: Supple, Trachea Midline Lungs: Clear to Auscultation, Normal Respiratory Effort Cardiovascular: Regular Rate, Regular Rhythm GI/Abdominal Exam: Normal Bowel Sounds, Soft, Non-Tender, No Organomegaly, No Distention (Female) Exam: Deferred Rectal (Female) Exam: Deferred Back Exam: Normal Inspection, Full Range of Motion Extremities: Non-Tender, No Pedal Edema, Normal Capillary Refill, Arm Pain ( Right shoulder ), Limited Range of Motion, Other (Bandage in place on right shoulder. Bandage is dry and intact. Sling in place. Cooling pack in place ) Peripheral Pulses: 2+: Radial (L), Radial (R), Dorsalis Pedis (L), Dorsalis Pedis (R) Skin: Warm, Dry, Intact Neurological: Cranial Nerves Intact (grossly ) Neuro Extensive - Mental Status: Alert, Oriented x3, Normal Mood/Affect, Normal Cognition - Patient Data Lab Results Last 24 hrs: Laboratory Results - last 24 hr 09/27/18 Range/Units 08:24 Sodium 133 L (136-145) mEq/L Potassium 4.1 (3.5-5.1) mEq/L Chloride 99 (98-107) mEq/L Carbon Dioxide 23 (21-32) mEq/L Anion Gap 15.1 H (5-15) BUN 18 (7-18) mg/dL Creatinine 0.9 (0.55-1.02) mg/dL Est Cr Clr Drug Dosing 48.60 mL/min Estimated GFR (MDRD) > 60 (>60) mL/min BUN/Creatinine Ratio 20.0 H (14-18) Glucose 99 (83-115) mg/dL Calcium 9.9 (8.5-10.1) mg/dL Result Diagrams: 09/27/18 08:24 Consult PN Assessment/Plan POD#: 0 Procedures: Procedures ASSAY OF CK (CPK) (04/21/16) C-REACTIVE PROTEIN (04/21/16) COMPLETE CBC AUTOMATED (04/21/16) COMPLETE CBC W/AUTO DIFF WBC (09/29/16) COMPREHEN METABOLIC PANEL (09/29/16) FLUOROSCOPY <1 HR PHYS/QHP (09/29/16) GAIT TRAINING THERAPY (09/29/16) LIPID PANEL (04/21/16) MR-STAPH DNA AMP PROBE (09/05/16) OFFICE/OUTPATIENT VISIT NEW (03/13/16) ORTHOTIC MGMT&TRAINJ 1ST ENC (03/13/16) OT EVAL LOW COMPLEX 30 MIN (09/29/16) PT EVAL LOW COMPLEX 20 MIN (09/29/16) ROUTINE VENIPUNCTURE (09/29/16) SELF CARE MNGMENT TRAINING (09/29/16) THERAPEUTIC ACTIVITIES (09/29/16) THERAPEUTIC EXERCISES (09/29/16) X-RAY EXAM OF SHOULDER (09/29/16) (1) S/p reverse total shoulder arthroplasty SNOMED Code(s): 786984296, 730014566 Code(s): Z96.619 - PRESENCE OF UNSPECIFIED ARTIFICIAL SHOULDER JOINT Priority: High Current Visit: Yes Qualifiers: Laterality: right Qualified Code(s): Z96.611 - Presence of right artificial shoulder joint (2) Osteoarthritis SNOMED Code(s): 980746177 Code(s): M19.90 - UNSPECIFIED OSTEOARTHRITIS, UNSPECIFIED SITE Priority: High Current Visit: Yes Qualifiers: Osteoarthritis location: shoulder Osteoarthritis type: primary Laterality : left Qualified Code(s): M19.012 - Primary osteoarthritis, left shoulder (3) Depression SNOMED Code(s): 50096499 Code(s): F32.9 - MAJOR DEPRESSIVE DISORDER, SINGLE EPISODE, UNSPECIFIED Priority: Low Current Visit: No Qualifiers: Depression Type: other depression Qualified Code(s): F32.89 - Other specified depressive episodes (4) GERD (gastroesophageal reflux disease) SNOMED Code(s): 453774856 Code(s): K21.9 - GASTRO-ESOPHAGEAL REFLUX DISEASE WITHOUT ESOPHAGITIS Priority: Medium Current Visit: No Qualifiers: Esophagitis presence: esophagitis presence not specified Qualified Code(s) : K21.9 - Gastro-esophageal reflux disease without esophagitis (5) HLD (hyperlipidemia) SNOMED Code(s): 82401922 Code(s): E78.5 - HYPERLIPIDEMIA, UNSPECIFIED Priority: High Current Visit : No Qualifiers: Hyperlipidemia type: unspecified Qualified Code(s): E78.5 - Hyperlipidemia , unspecified (6) HTN (hypertension) SNOMED Code(s): 54562982 Code(s): I10 - ESSENTIAL (PRIMARY) HYPERTENSION Priority: Medium Current Visit: No Qualifiers: Hypertension type: essential hypertension Qualified Code(s): I10 - Essential (primary) hypertension (7) Hypothyroidism SNOMED Code(s): 49389384 Code(s): E03.9 - HYPOTHYROIDISM, UNSPECIFIED Priority: Medium Current Visit: No Qualifiers: Hypothyroidism type: unspecified Qualified Code(s): E03.9 - Hypothyroidism , unspecified (8) Lupus SNOMED Code(s): 95776083 Code(s): M32.9 - SYSTEMIC LUPUS ERYTHEMATOSUS, UNSPECIFIED Priority: Medium Current Visit: No Qualifiers: Systemic lupus erythematosus type: unspecified Systemic lupus erythematosus organ involvement: unspecified Qualified Code(s): M32.9 - Systemic lupus erythematosus, unspecified (9) Rheumatoid arthritis SNOMED Code(s): 03873146 Code(s): M06.9 - RHEUMATOID ARTHRITIS, UNSPECIFIED Priority: Medium Current Visit: No Qualifiers: Rheumatoid arthritis location: unspecified site Problem List Initiated/Reviewed/Updated: Yes Plan: I/P: Acute: S/P reverse right total shoulder arthroplasty - post-operative day 0 -DVT prophylaxis and pain management per primary care team -PT/OT -IS/RT -Monitor oxygen saturation -Titrate oxygen as needed -Vital signs stable -Monitor labs -Pre-operative Hgb was 12.5 -Pre-operative GFR was 48 -Pre-operative creatinine was 1.11 Osteoarthritis of right shoulder -Pain management per primary care team Chronic: BPPV CAD Connective tissue disease GERD hypothyroidism scleroderma polyarthralgia arthritis depression DJD hx/o renal stent HTN PVD Raynaud disease Spinal stenosis varicose veins Chronic back pain migraines edema deviated septum alyssia bullosa Plan: CM for discharge planning GI prophylaxis Home medications as indicated Other orders as listed above Routine AM labs She is a full code. Her PCP is Blaine Thank you for allowing us to participate in the care of this patient!! Requesting Provider: Dr. Pimentel Date Consult Requested: 09/27/18 Reason for Consult: Post-operative medical management Patient History Reviewed: Yes Admission H&P Reviewed: Yes Time Spent (in minutes): 40
[2018-09-27] MEDS: Acetaminophen/oxyCODONE 325-5 MG Tab PO PRN ×2 (17:44→22:22)
[2018-09-27] MEDS: ceFAZolin 2 GM in Premix Bag 1 BAG IV SCH (17:54)
[2018-09-27] MEDS: Carvedilol 12.5 MG Tab PO SCH (20:38)
[2018-09-27] MEDS: Docusate Sodium 100 MG Cap PO SCH (20:38)
[2018-09-27] MEDS ORDERED: KETOTIFEN FUMARATE OP SCH (21:00)
[2018-09-27] MEDS ORDERED: Hydroxychloroquine 200 MG Tab PO SCH (21:00)
[2018-09-27] MEDS ORDERED: Simvastatin 20 MG Tab PO SCH (21:00)
[2018-09-27] MEDS ORDERED: Gabapentin 100 MG Cap PO SCH (21:00)
[2018-09-27] MEDS ORDERED: Non-Formulary Medication 1 Each (Ubidecarenone [Co Q-10] 200 MG) PO SCH (21:00)
[2018-09-27] MEDS ORDERED: ZICAM NAS SCH (21:00)
[2018-09-28] MEDS: ceFAZolin 2 GM in Premix Bag 1 BAG IV SCH ×2 (01:53→09:14)
[2018-09-28] MEDS: Acetaminophen/oxyCODONE 325-5 MG Tab PO PRN ×3 (02:27→11:31)
[2018-09-28] MEDS ORDERED: Levothyroxine 75 MCG Tab PO SCH (06:00)
--- NOTE | 2018-09-28 06:35 | PCM.CONSN ---
- General Info Date of Service: 09/28/18 Admission Dx/Problem (Free Text): Admission Diagnosis/Problem Admission Diagnosis/Problem Shoulder joint pain Subjective Update: In to see Holly. She is sitting in bed. She has been coughing and reports this is somewhat new. Clear sputum. Lungs clear. CXR obtained and shows nothing acute. No leukocytosis. No concerns from nursing or patient. Encouraged continued IS use. Functional Status: Reports: Pain Controlled, Tolerating Diet, Ambulating, Urinating, Incentive Spirometry. Denies: New Symptoms - Review of Systems General: Reports: No Symptoms. Denies: Fever, Weakness, Fatigue, Chills HEENT: Reports: No Symptoms. Denies: Headaches, Sore Throat Pulmonary: Reports: No Symptoms, Cough, Sputum (occasional clear). Denies: Shortness of Breath, Pleuritic Chest Pain, Wheezing Cardiovascular: Reports: No Symptoms. Denies: Chest Pain, Palpitations, Dyspnea on Exertion Gastrointestinal: Reports: No Symptoms. Denies: Abdominal Pain, Constipation, Diarrhea, Nausea, Vomiting Genitourinary: Reports: No Symptoms. Denies: Pain Musculoskeletal: Reports: Shoulder Pain Skin: Reports: No Symptoms. Denies: Cyanosis Neurological: Reports: No Symptoms. Denies: Confusion Psychiatric: Reports: No Symptoms - Patient Data Vitals - Most Recent: Last Vital Signs Temp 99.7 F 09/28/18 04:38 Pulse 81 09/28/18 04:38 Resp 20 09/28/18 04:38 BP 137/49 L 09/28/18 04:38 Pulse Ox 92 L 09/28/18 04:38 Weight - Most Recent: 200 lb 6.4 oz I&O - Last 24 Hours: Intake & Output 09/27/18 09/27/18 09/28/18 14:59 22:59 06:59 Intake Total 180 660 850 Output Total 950 Balance 180 660 -100 Lab Results Last 24 Hours: Laboratory Results - last 24 hr 09/27/18 09/28/18 Range/Units 08:24 05:25 WBC 7.16 (3.98-10.04) K/mm3 RBC 3.34 L (3.98-5.22) M/mm3 Hgb 11.0 L (11.2-15.7) gm/L Hct 33.4 L (34.1-44.9) % MCV 100.0 H (79.4-94.8) fl MCH 32.9 H (25.6-32.2) pg MCHC 32.9 (32.2-35.5) g/dl RDW Std Deviation 47.6 H (36.4-46.3) fL Plt Count 183 (182-369) K/mm3 MPV 10.1 (9.4-12.3) fl Sodium 133 L (136-145) mEq/L Potassium 4.1 (3.5-5.1) mEq/L Chloride 99 (98-107) mEq/L Carbon Dioxide 23 (21-32) mEq/L Anion Gap 15.1 H (5-15) BUN 18 (7-18) mg/dL Creatinine 0.9 (0.55-1.02) mg/dL Est Cr Clr Drug Dosing 48.60 mL/min Estimated GFR (MDRD) > 60 (>60) mL/min BUN/Creatinine Ratio 20.0 H (14-18) Glucose 99 (83-115) mg/dL Calcium 9.9 (8.5-10.1) mg/dL Med Orders - Current: Current Medications Aspirin (Ecotrin) 325 mg PO DAILY [facility] Bisacodyl (Dulcolax) 5 mg PO DAILY PRN PRN Reason: Constipation Carvedilol (Coreg) 12.5 mg PO BID [facility] Last Admin: 09/27/18 20:38 Dose: 12.5 mg Cholecalciferol (Vitamin D3) 5,000 - 10,000 unit PO DAILY [facility] Cyanocobalamin (Vitamin B12) 1,000 mcg PO DAILY [facility] Diphenhydramine HCl (Benadryl) 12.5 mg IVPUSH Q6H PRN PRN Reason: pruritis Docusate Sodium (Colace) 100 mg PO BID [facility] Last Admin: 09/27/18 20:38 Dose: 100 mg Fentanyl (Sublimaze) 50 mcg IVPUSH Q5M PRN PRN Reason: Pain Gabapentin (Neurontin) 200 mg PO BEDTIME [facility] Last Admin: 09/27/18 20:37 Dose: 200 mg Hydroxychloroquine Sulfate (Plaquenil) 200 mg PO BEDTIME [facility] Last Admin: 09/27/18 20:39 Dose: 200 mg Cefazolin Sodium/Dextrose 2 gm (/ Premix) 50 mls @ 100 mls/hr IV Q8H [facility] Stop: 09/28/18 10:29 Last Admin: 09/28/18 01:53 Dose: 100 mls/hr Levothyroxine Sodium (Levothyroxine) 75 mcg PO ACBRK [facility] Magnesium Hydroxide (Milk Of Magnesia) 30 ml PO BID PRN PRN Reason: Constipation Morphine Sulfate (Morphine) 2 mg IVPUSH Q2H PRN PRN Reason: Breakthrough Pain Naloxone HCl (Narcan) 0.1 mg IVPUSH Q5M PRN PRN Reason: Oversedation Non-Formulary Medication (Ketotifen Fumarate) 1 drop OP BID [facility] Non-Formulary Medication (Ubidecarenone [Co Q-10]) 200 mg PO BEDTIME [facility] Non-Formulary Medication (Zicam) 2 spray LUCY BID [facility] Ondansetron HCl (Zofran) 4 mg IVPUSH Q6H PRN PRN Reason: Nausea/Vomiting Ondansetron HCl (Zofran) 4 mg IVPUSH ONETIME PRN PRN Reason: Nausea/Vomiting Oxycodone/Acetaminophen (Percocet 325-5 Mg) 1 - 2 tab PO Q4H PRN PRN Reason: Pain Last Admin: 09/28/18 02:27 Dose: 2 tab Pantoprazole Sodium (Protonix) 40 mg PO DAILY@0700 [facility] Senna (Senna) 8.6 mg PO BID PRN PRN Reason: Constipation Sertraline HCl (Zoloft) 100 mg PO DAILY [facility] Simvastatin (Zocor) 20 mg PO BEDTIME [facility] Last Admin: 09/27/18 20:37 Dose: 20 mg Vitamin B Complex/Vitamin C (Super B With Vitamin C) 1 cap PO DAILY [facility] Discontinued Medications Acetaminophen (Tylenol) 325 mg PO NOW ONE Stop: 09/27/18 13:09 Last Admin: 09/27/18 13:16 Dose: 325 mg Cefazolin Sodium (Ancef) Confirm Administered Dose 2 gm .ROUTE .STK-MED ONE Stop: 09/27/18 09:42 Last Admin: 09/27/18 12:14 Dose: 2 gm Cefazolin Sodium (Ancef) Confirm Administered Dose 2 gm .ROUTE .STK-MED ONE Stop: 09/27/18 09:58 Epinephrine HCl (Adrenalin) Confirm Administered Dose 1 mg .ROUTE .STK-MED ONE Stop: 09/27/18 07:52 Fentanyl (Sublimaze) Confirm Administered Dose 100 mcg .ROUTE .STK-MED ONE Stop: 09/27/18 08:12 Fentanyl (Sublimaze) Confirm Administered Dose 100 mcg .ROUTE .STK-MED ONE Stop: 09/27/18 09:16 Fentanyl (Sublimaze) Confirm Administered Dose 100 mcg .ROUTE .STK-MED ONE Stop: 09/27/18 09:38 Fentanyl (Sublimaze) Confirm Administered Dose 100 mcg .ROUTE .STK-MED ONE Stop: 09/27/18 12:15 Glycopyrrolate () Confirm Administered Dose 1 mg .ROUTE .STK-MED ONE Stop: 09/27/18 12:19 Lactated Ringer's (Ringers, Lactated) 1,000 mls @ 125 mls/hr IV ASDIRECTED [facility] Stop: 09/27/18 23:00 Last Admin: 09/27/18 08:20 Dose: 125 mls/hr Lidocaine HCl (Xylocaine-Mpf 1%) Confirm Administered Dose 6 mls @ as directed .ROUTE .ST-MED ONE Stop: 09/27/18 09:38 Lidocaine HCl (Xylocaine-Mpf 1%) Confirm Administered Dose 6 mls @ as directed .ROUTE .STK-MED ONE Stop: 09/27/18 12:18 Iodine (Iodine 2% Mild Tincture) Confirm Administered Dose 30 ml .ROUTE .STK- MED ONE Stop: 09/27/18 09:58 Last Admin: 09/27/18 12:16 Dose: 18 ml Lidocaine/Sodium Bicarbonate (Buffered Lidocaine 1% In Ns 8.4%) 0.25 ml IDERM ONETIME PRN PRN Reason: Prior to IV Start Stop: 09/27/18 18:00 Last Admin: 09/27/18 08:15 Dose: 0.25 ml Midazolam HCl (Versed 1 Mg/Ml) Confirm Administered Dose 2 mg .ROUTE .STK-MED ONE Stop: 09/27/18 08:12 Midazolam HCl (Versed 1 Mg/Ml) Confirm Administered Dose 2 mg .ROUTE .STK-MED ONE Stop: 09/27/18 12:16 Neostigmine Methylsulfate (Neostigmine) Confirm Administered Dose 5 mg .ROUTE .STK-MED ONE Stop: 09/27/18 12:19 Ondansetron HCl (Zofran) Confirm Administered Dose 4 mg .ROUTE .STK-MED ONE Stop: 09/27/18 09:15 Ondansetron HCl (Zofran) Confirm Administered Dose 4 mg .ROUTE .STK-MED ONE Stop: 09/27/18 09:41 Propofol (Diprivan 20 Ml) Confirm Administered Dose 200 mg .ROUTE .STK-MED ONE Stop: 09/27/18 09:16 Propofol (Diprivan 20 Ml) Confirm Administered Dose 200 mg .ROUTE .STK-MED ONE Stop: 09/27/18 09:37 Rocuronium [place] (Zemuron) Confirm Administered Dose 50 mg .ROUTE .STK-MED ONE Stop: 09/27/18 09:15 Ropivacaine (Naropin 0.5%) Confirm Administered Dose 30 ml .ROUTE .STK-MED ONE Stop: 09/27/18 07:53 Sodium Chloride (Saline Flush) 10 ml FLUSH ASDIRECTED PRN PRN Reason: Keep Vein Open Stop: 09/27/18 18:00 Tranexamic Acid (Cyklokapron) Confirm Administered Dose 1,000 mg .ROUTE .STK- MED ONE Stop: 09/27/18 09:58 Last Admin: 09/27/18 12:25 Dose: 1,000 mg Triamterene/HCTZ (Dyazide 25-37.5 Mg) 1 each PO DAILY [facility] Vancomycin HCl (Vancomycin) Confirm Administered Dose 1 gm .ROUTE .STK-MED ONE Stop: 09/27/18 09:58 Last Admin: 09/27/18 12:20 Dose: 1 gm - Exam Quality Assessment: DVT Prophylaxis General: Alert, Oriented, Cooperative, No Acute Distress HEENT: Pupils Equal, Pupils Reactive, EOMI, Mucous Membr. Moist/[place] Neck: Supple, Trachea Midline, No JVD Lungs: Clear to Auscultation, Normal Respiratory Effort Cardiovascular: Regular Rate, Regular Rhythm GI/Abdominal Exam: Normal Bowel Sounds, Soft, Non-Tender, No Organomegaly, No Distention (Female) Exam: Deferred Back Exam: Normal Inspection, Full Range of Motion Extremities: Non-Tender, No Pedal Edema, Normal Capillary Refill, Arm Pain ( right shoulder ), Limited Range of Motion, Other (Bandage in place on right arm. Sling and cooling pack in place. ) Peripheral Pulses: 2+: Radial (L), Radial (R), Dorsalis Pedis (L), Dorsalis Pedis (R) Skin: Warm, Dry, Intact Wound/Incisions: Dressing Dry and Intact, No Drainage Neurological: No New Focal Deficit Psy/Mental Status: Alert, Normal Affect, Normal Mood Consult PN Assessment/Plan POD#: 1 Procedures: Procedures ASSAY OF CK (CPK) (04/21/16) C-REACTIVE PROTEIN (04/21/16) COMPLETE CBC AUTOMATED (04/21/16) COMPLETE CBC W/AUTO DIFF WBC (09/29/16) COMPREHEN METABOLIC PANEL (09/29/16) FLUOROSCOPY <1 HR PHYS/QHP (09/29/16) GAIT TRAINING THERAPY (09/29/16) LIPID PANEL (04/21/16) MR-STAPH DNA AMP PROBE (09/05/16) OFFICE/OUTPATIENT VISIT NEW (03/13/16) ORTHOTIC MGMT&TRAINJ 1ST ENC (03/13/16) OT EVAL LOW COMPLEX 30 MIN (09/29/16) PT EVAL LOW COMPLEX 20 MIN (09/29/16) ROUTINE VENIPUNCTURE (09/29/16) SELF CARE MNGMENT TRAINING (09/29/16) THERAPEUTIC ACTIVITIES (09/29/16) THERAPEUTIC EXERCISES (09/29/16) X-RAY EXAM OF SHOULDER (09/29/16) (1) S/p reverse total shoulder arthroplasty SNOMED Code(s): 816195035, 401588510 Code(s): Z96.619 - PRESENCE OF UNSPECIFIED ARTIFICIAL SHOULDER JOINT Priority: High Current Visit: Yes Qualifiers: Laterality: right Qualified Code(s): Z96.611 - Presence of right artificial shoulder joint (2) Osteoarthritis SNOMED Code(s): 142060265 Code(s): M19.90 - UNSPECIFIED OSTEOARTHRITIS, UNSPECIFIED SITE Priority: High Current Visit: Yes Qualifiers: Osteoarthritis location: shoulder Osteoarthritis type: primary Laterality : left Qualified Code(s): M19.012 - Primary osteoarthritis, left shoulder (3) Depression SNOMED Code(s): 07810981 Code(s): F32.9 - MAJOR DEPRESSIVE DISORDER, SINGLE EPISODE, UNSPECIFIED Priority: Low Current Visit: No Qualifiers: Depression Type: other depression Qualified Code(s): F32.89 - Other specified depressive episodes (4) GERD (gastroesophageal reflux disease) SNOMED Code(s): 688969938 Code(s): K21.9 - GASTRO-ESOPHAGEAL REFLUX DISEASE WITHOUT ESOPHAGITIS Priority: Medium Current Visit: No Qualifiers: Esophagitis presence: esophagitis presence not specified Qualified Code(s) : K21.9 - Gastro-esophageal reflux disease without esophagitis (5) HLD (hyperlipidemia) SNOMED Code(s): 46567214 Code(s): E78.5 - HYPERLIPIDEMIA, UNSPECIFIED Priority: High Current Visit : No Qualifiers: Hyperlipidemia type: unspecified Qualified Code(s): E78.5 - Hyperlipidemia , unspecified (6) HTN (hypertension) SNOMED Code(s): 31449782 Code(s): I10 - ESSENTIAL (PRIMARY) HYPERTENSION Priority: Medium Current Visit: No Qualifiers: Hypertension type: essential hypertension Qualified Code(s): I10 - Essential (primary) hypertension (7) Hypothyroidism SNOMED Code(s): 07271485 Code(s): E03.9 - HYPOTHYROIDISM, UNSPECIFIED Priority: Medium Current Visit: No Qualifiers: Hypothyroidism type: unspecified Qualified Code(s): E03.9 - Hypothyroidism , unspecified (8) Lupus SNOMED Code(s): 67996464 Code(s): M32.9 - SYSTEMIC LUPUS ERYTHEMATOSUS, UNSPECIFIED Priority: Medium Current Visit: No Qualifiers: Systemic lupus erythematosus type: unspecified Systemic lupus erythematosus organ involvement: unspecified Qualified Code(s): M32.9 - Systemic lupus erythematosus, unspecified (9) Rheumatoid arthritis SNOMED Code(s): 63845601 Code(s): M06.9 - RHEUMATOID ARTHRITIS, UNSPECIFIED Priority: Medium Current Visit: No Qualifiers: Rheumatoid arthritis location: unspecified site Problem List Initiated/Reviewed/Updated: Yes Plan: I/P: Acute: S/P reverse right total shoulder arthroplasty - post-operative day 1 -DVT prophylaxis and pain management per primary care team -PT/OT -IS/RT -Monitor oxygen saturation -Titrate oxygen as needed -Vital signs stable -Monitor labs -Pre-operative Hgb was 12.5; Now 11.0 -Pre-operative GFR was 48; Now >60 -Pre-operative creatinine was 1.11; Now 0.8 Osteoarthritis of right shoulder -Pain management per primary care team Chronic: BPPV CAD Connective tissue disease GERD hypothyroidism scleroderma polyarthralgia arthritis depression DJD hx/o renal stent HTN PVD Raynaud disease Spinal stenosis varicose veins Chronic back pain migraines edema deviated septum alyssia bullosa Plan: CM for discharge planning GI prophylaxis Home medications as indicated Other orders as listed above Routine AM labs She is a full code. Her PCP is Dr. Valladares From a hospitalist standpoint Holly is doing well. She has been up ambulating and working with therapies. Pain is controlled. She has urinated and is off of oxygen. She did have a cough which has been quite harsh so CXR was obtained. This showed nothing acute. No leukocytosis. Labs and vital signs remain stable. No nursing or patient concerns. She is cleared for discharge pending primary team and PT/OT agreement. Thank you for allowing us to participate in the care of this patient!!
[2018-09-28] MEDS ORDERED: Pantoprazole 40 MG Tab.CR PO SCH (07:00)
--- NOTE | 2018-09-28 08:11 | PCM.SURGPN ---
- General Info Date of Service: 09/28/18 POD#: 1 Functional Status: Reports: Pain Controlled, Tolerating Diet, Urinating, Incentive Spirometry - Patient Data Vitals - Most Recent: Last Vital Signs Temp 99.7 F 09/28/18 04:38 Pulse 81 09/28/18 04:38 Resp 20 09/28/18 04:38 BP 137/49 L 09/28/18 04:38 Pulse Ox 92 L 09/28/18 04:38 Weight - Most Recent: 200 lb 6.4 oz I&O - Last 24 Hours: Intake & Output 09/27/18 09/28/18 09/28/18 22:59 06:59 14:59 Intake Total 660 850 Output Total 950 Balance 660 -100 Lab Results Last 24 Hrs: Laboratory Results - last 24 hr 09/27/18 09/28/18 09/28/18 Range/Units 08:24 05:25 05:25 WBC 7.16 (3.98-10.04) K/mm3 RBC 3.34 L (3.98-5.22) M/mm3 Hgb 11.0 L (11.2-15.7) gm/L Hct 33.4 L (34.1-44.9) % MCV 100.0 H (79.4-94.8) fl MCH 32.9 H (25.6-32.2) pg MCHC 32.9 (32.2-35.5) g/dl RDW Std Deviation 47.6 H (36.4-46.3) fL Plt Count 183 (182-369) K/mm3 MPV 10.1 (9.4-12.3) fl Sodium 133 L 130 L (136-145) mEq/L Potassium 4.1 3.6 (3.5-5.1) mEq/L Chloride 99 97 L (98-107) mEq/L Carbon Dioxide 23 23 (21-32) mEq/L Anion Gap 15.1 H 13.6 (5-15) BUN 18 11 (7-18) mg/dL Creatinine 0.9 0.8 (0.55-1.02) mg/dL Est Cr Clr Drug Dosing 48.60 54.67 mL/min Estimated GFR (MDRD) > 60 > 60 (>60) mL/min BUN/Creatinine Ratio 20.0 H 13.8 L (14-18) Glucose 99 109 (83-115) mg/dL Calcium 9.9 8.9 (8.5-10.1) mg/dL Total Bilirubin 0.6 (0.2-1.0) mg/dL AST 31 (15-37) U/L ALT 22 (14-59) U/L Alkaline Phosphatase 126 H (46-116) U/L Total Protein 6.4 (6.4-8.2) g/dl Albumin 2.8 L (3.4-5.0) g/dl Globulin 3.6 gm/dL Albumin/Globulin Ratio 0.8 L (1-2) Med Orders - Current: Current Medications Aspirin (Ecotrin) 325 mg PO DAILY [facility] Bisacodyl (Dulcolax) 5 mg PO DAILY PRN PRN Reason: Constipation Carvedilol (Coreg) 12.5 mg PO BID [facility] Last Admin: 09/27/18 20:38 Dose: 12.5 mg Cholecalciferol (Vitamin D3) 5,000 - 10,000 unit PO DAILY [facility] Cyanocobalamin (Vitamin B12) 1,000 mcg PO DAILY [facility] Diphenhydramine HCl (Benadryl) 12.5 mg IVPUSH Q6H PRN PRN Reason: pruritis Docusate Sodium (Colace) 100 mg PO BID [facility] Last Admin: 09/27/18 20:38 Dose: 100 mg Fentanyl (Sublimaze) 50 mcg IVPUSH Q5M PRN PRN Reason: Pain Gabapentin (Neurontin) 200 mg PO BEDTIME [facility] Last Admin: 09/27/18 20:37 Dose: 200 mg Hydroxychloroquine Sulfate (Plaquenil) 200 mg PO BEDTIME [facility] Last Admin: 09/27/18 20:39 Dose: 200 mg Cefazolin Sodium/Dextrose 2 gm (/ Premix) 50 mls @ 100 mls/hr IV Q8H [facility] Stop: 09/28/18 10:29 Last Admin: 09/28/18 01:53 Dose: 100 mls/hr Levothyroxine Sodium (Levothyroxine) 75 mcg PO ACBRK [facility] Last Admin: 09/28/18 06:48 Dose: 75 mcg Magnesium Hydroxide (Milk Of Magnesia) 30 ml PO BID PRN PRN Reason: Constipation Morphine Sulfate (Morphine) 2 mg IVPUSH Q2H PRN PRN Reason: Breakthrough Pain Naloxone HCl (Narcan) 0.1 mg IVPUSH Q5M PRN PRN Reason: Oversedation Ondansetron HCl (Zofran) 4 mg IVPUSH Q6H PRN PRN Reason: Nausea/Vomiting Ondansetron HCl (Zofran) 4 mg IVPUSH ONETIME PRN PRN Reason: Nausea/Vomiting Oxycodone/Acetaminophen (Percocet 325-5 Mg) 1 - 2 tab PO Q4H PRN PRN Reason: Pain Last Admin: 09/28/18 06:48 Dose: 2 tab Pantoprazole Sodium (Protonix) 40 mg PO DAILY@0700 [facility] Last Admin: 09/28/18 06:48 Dose: 40 mg Senna (Senna) 8.6 mg PO BID PRN PRN Reason: Constipation Sertraline HCl (Zoloft) 100 mg PO DAILY [facility] Simvastatin (Zocor) 20 mg PO BEDTIME [facility] Last Admin: 09/27/18 20:37 Dose: 20 mg Vitamin B Complex/Vitamin C (Super B With Vitamin C) 1 cap PO DAILY [facility] Discontinued Medications Acetaminophen (Tylenol) 325 mg PO NOW ONE Stop: 09/27/18 13:09 Last Admin: 09/27/18 13:16 Dose: 325 mg Cefazolin Sodium (Ancef) Confirm Administered Dose 2 gm .ROUTE .STK-MED ONE Stop: 09/27/18 09:42 Last Admin: 09/27/18 12:14 Dose: 2 gm Cefazolin Sodium (Ancef) Confirm Administered Dose 2 gm .ROUTE .STK-MED ONE Stop: 09/27/18 09:58 Epinephrine HCl (Adrenalin) Confirm Administered Dose 1 mg .ROUTE .STK-MED ONE Stop: 09/27/18 07:52 Fentanyl (Sublimaze) Confirm Administered Dose 100 mcg .ROUTE .STK-MED ONE Stop: 09/27/18 08:12 Fentanyl (Sublimaze) Confirm Administered Dose 100 mcg .ROUTE .STK-MED ONE Stop: 09/27/18 09:16 Fentanyl (Sublimaze) Confirm Administered Dose 100 mcg .ROUTE .STK-MED ONE Stop: 09/27/18 09:38 Fentanyl (Sublimaze) Confirm Administered Dose 100 mcg .ROUTE .STK-MED ONE Stop: 09/27/18 12:15 Glycopyrrolate () Confirm Administered Dose 1 mg .ROUTE .STK-MED ONE Stop: 09/27/18 12:19 Lactated Ringer's (Ringers, Lactated) 1,000 mls @ 125 mls/hr IV ASDIRECTED [facility] Stop: 09/27/18 23:00 Last Admin: 09/27/18 08:20 Dose: 125 mls/hr Lidocaine HCl (Xylocaine-Mpf 1%) Confirm Administered Dose 6 mls @ as directed .ROUTE .STK-MED ONE Stop: 09/27/18 09:38 Lidocaine HCl (Xylocaine-Mpf 1%) Confirm Administered Dose 6 mls @ as directed .ROUTE .STK-MED ONE Stop: 09/27/18 12:18 Iodine (Iodine 2% Mild Tincture) Confirm Administered Dose 30 ml .ROUTE .STK- MED ONE Stop: 09/27/18 09:58 Last Admin: 09/27/18 12:16 Dose: 18 ml Lidocaine/Sodium Bicarbonate (Buffered Lidocaine 1% In Ns 8.4%) 0.25 ml IDERM ONETIME PRN PRN Reason: Prior to IV Start Stop: 09/27/18 18:00 Last Admin: 09/27/18 08:15 Dose: 0.25 ml Midazolam HCl (Versed 1 Mg/Ml) Confirm Administered Dose 2 mg .ROUTE .STK-MED ONE Stop: 09/27/18 08:12 Midazolam HCl (Versed 1 Mg/Ml) Confirm Administered Dose 2 mg .ROUTE .STK-MED ONE Stop: 09/27/18 12:16 Neostigmine Methylsulfate (Neostigmine) Confirm Administered Dose 5 mg .ROUTE .STK-MED ONE Stop: 09/27/18 12:19 Non-Formulary Medication (Ketotifen Fumarate) 1 drop OP BID [facility] Last Admin: 09/28/18 07:43 Dose: Not Given Non-Formulary Medication (Ubidecarenone [Co Q-10]) 200 mg PO BEDTIME [facility] Last Admin: 09/28/18 07:43 Dose: Not Given Non-Formulary Medication (Zicam) 2 spray LUCY BID [facility] Last Admin: 09/28/18 07:43 Dose: Not Given Ondansetron HCl (Zofran) Confirm Administered Dose 4 mg .ROUTE .STK-MED ONE Stop: 09/27/18 09:15 Ondansetron HCl (Zofran) Confirm Administered Dose 4 mg .ROUTE .STK-MED ONE Stop: 09/27/18 09:41 Propofol (Diprivan 20 Ml) Confirm Administered Dose 200 mg .ROUTE .STK-MED ONE Stop: 09/27/18 09:16 Propofol (Diprivan 20 Ml) Confirm Administered Dose 200 mg .ROUTE .STK-MED ONE Stop: 09/27/18 09:37 Rocuronium Robert (Zemuron) Confirm Administered Dose 50 mg .ROUTE .STK-MED ONE Stop: 09/27/18 09:15 Ropivacaine (Naropin 0.5%) Confirm Administered Dose 30 ml .ROUTE .STK-MED ONE Stop: 09/27/18 07:53 Sodium Chloride (Saline Flush) 10 ml FLUSH ASDIRECTED PRN PRN Reason: Keep Vein Open Stop: 09/27/18 18:00 Tranexamic Acid (Cyklokapron) Confirm Administered Dose 1,000 mg .ROUTE .STK- MED ONE Stop: 09/27/18 09:58 Last Admin: 09/27/18 12:25 Dose: 1,000 mg Triamterene/HCTZ (Dyazide 25-37.5 Mg) 1 each PO DAILY [facility] Vancomycin HCl (Vancomycin) Confirm Administered Dose 1 gm .ROUTE .STK-MED ONE Stop: 09/27/18 09:58 Last Admin: 09/27/18 12:20 Dose: 1 gm - Exam Wound/Incisions: Dressing Dry and Intact General: Alert, Cooperative, No Acute Distress Lungs: Normal Respiratory Effort Extremities: Other (NVS intact for BUE. ) - Problem List Review Problem List Initiated/Reviewed/Updated: Yes - My Orders Last 24 Hours: Active Orders 24 hr Category Date Time Status Notify Provider Consults [RC] ASDIRECTED Care 09/27/18 07:16 Active Notify Provider [RC] ASDIRECTED Care 09/27/18 13:07 Active Oxygen Therapy [RC] ASDIRECTED Care 09/27/18 13:07 Active Pulse Oximetry [RC] ASDIRECTED Care 09/27/18 13:07 Active Ready for Discharge [RC] PER UNIT ROUTINE Care 09/28/18 08:05 Active Regular Diet [DIET] Diet 09/27/18 Lunch Active CXR [Chest 2V] [CR] Routine Exams 09/28/18 07:17 Ordered Acetaminophen/oxyCODONE [Percocet 325-5 MG] Med 09/27/18 11:30 Active 1 - 2 tab PO Q4H PRN Aspirin [Ecotrin] Med 09/28/18 09:00 Active 325 mg PO DAILY Bisacodyl [Dulcolax] Med 09/27/18 11:30 Active 5 mg PO DAILY PRN Carvedilol [Coreg] Med 09/27/18 21:00 Active 12.5 mg PO BID Cholecalciferol (Vitamin D3) [Vitamin D3] Med 09/28/18 09:00 Active 5,000 - 10,000 unit PO DAILY Cyanocobalamin (Vitamin B12) [Vitamin B12] Med 09/28/18 09:00 Active 1,000 mcg PO DAILY Docusate Sodium [Colace] Med 09/27/18 21:00 Active 100 mg PO BID Gabapentin [Neurontin] Med 09/27/18 21:00 Active 200 mg PO BEDTIME Hydroxychloroquine [Plaquenil] Med 09/27/18 21:00 Active 200 mg PO BEDTIME Levothyroxine Med 09/28/18 06:00 Active 75 mcg PO ACBRK Magnesium Hydroxide [Milk of Magnesia] Med 09/27/18 11:30 Active 30 ml PO BID PRN Morphine Med 09/27/18 11:30 Active 2 mg IVPUSH Q2H PRN Naloxone [Narcan] Med 09/27/18 11:30 Active 0.1 mg IVPUSH Q5M PRN Ondansetron [Zofran] Med 09/27/18 13:07 Active 4 mg IVPUSH ONETIME PRN Ondansetron [Zofran] Med 09/27/18 11:30 Active 4 mg IVPUSH Q6H PRN Pantoprazole [ProTONIX] Med 09/28/18 07:00 Active 40 mg PO DAILY@0700 Sennosides [Senna] Med 09/27/18 11:30 Active 8.6 mg PO BID PRN Sertraline [Zoloft] Med 09/28/18 09:00 Active 100 mg PO DAILY Simvastatin [Zocor] Med 09/27/18 21:00 Active 20 mg PO BEDTIME Vitamin B Complex with C [Super B With Vitamin C] Med 09/28/18 09:00 Active 1 cap PO DAILY ceFAZolin [Ancef] 2 gm Med 09/27/18 18:00 Active Premix Bag 1 bag IV Q8H diphenhydrAMINE [Benadryl] Med 09/27/18 13:07 Active 12.5 mg IVPUSH Q6H PRN fentaNYL [Sublimaze] Med 09/27/18 13:07 Active 50 mcg IVPUSH Q5M PRN Medication Orders Aspirin (Ecotrin) 325 mg PO DAILY [facility] Bisacodyl (Dulcolax) 5 mg PO DAILY PRN PRN Reason: Constipation Carvedilol (Coreg) 12.5 mg PO BID [facility] Last Admin: 09/27/18 20:38 Dose: 12.5 mg Cholecalciferol (Vitamin D3) 5,000 - 10,000 unit PO DAILY [facility] Cyanocobalamin (Vitamin B12) 1,000 mcg PO DAILY [facility] Diphenhydramine HCl (Benadryl) 12.5 mg IVPUSH Q6H PRN PRN Reason: pruritis Docusate Sodium (Colace) 100 mg PO BID [facility] Last Admin: 09/27/18 20:38 Dose: 100 mg Fentanyl (Sublimaze) 50 mcg IVPUSH Q5M PRN PRN Reason: Pain Gabapentin (Neurontin) 200 mg PO BEDTIME [facility] Last Admin: 09/27/18 20:37 Dose: 200 mg Hydroxychloroquine Sulfate (Plaquenil) 200 mg PO BEDTIME [facility] Last Admin: 09/27/18 20:39 Dose: 200 mg Cefazolin Sodium/Dextrose 2 gm (/ Premix) 50 mls @ 100 mls/hr IV Q8H [facility] Stop: 09/28/18 10:29 Last Admin: 09/28/18 01:53 Dose: 100 mls/hr Infusion: 09/27/18 18:24 Dose: 100 mls/hr Admin: 09/27/18 17:54 Dose: 100 mls/hr Levothyroxine Sodium (Levothyroxine) 75 mcg PO ACBRK [facility] Last Admin: 09/28/18 06:48 Dose: 75 mcg Magnesium Hydroxide (Milk Of Magnesia) 30 ml PO BID PRN PRN Reason: Constipation Morphine Sulfate (Morphine) 2 mg IVPUSH Q2H PRN PRN Reason: Breakthrough Pain Naloxone HCl (Narcan) 0.1 mg IVPUSH Q5M PRN PRN Reason: Oversedation Ondansetron HCl (Zofran) 4 mg IVPUSH Q6H PRN PRN Reason: Nausea/Vomiting Ondansetron HCl (Zofran) 4 mg IVPUSH ONETIME PRN PRN Reason: Nausea/Vomiting Oxycodone/Acetaminophen (Percocet 325-5 Mg) 1 - 2 tab PO Q4H PRN PRN Reason: Pain Last Admin: 09/28/18 06:48 Dose: 2 tab Admin: 09/28/18 02:27 Dose: 2 tab Admin: 09/27/18 22:22 Dose: 2 tab Admin: 09/27/18 17:44 Dose: 2 tab Pantoprazole Sodium (Protonix) 40 mg PO DAILY@0700 [facility] Last Admin: 09/28/18 06:48 Dose: 40 mg Senna (Senna) 8.6 mg PO BID PRN PRN Reason: Constipation Sertraline HCl (Zoloft) 100 mg PO DAILY [facility] Simvastatin (Zocor) 20 mg PO BEDTIME [facility] Last Admin: 09/27/18 20:37 Dose: 20 mg Vitamin B Complex/Vitamin C (Super B With Vitamin C) 1 cap PO DAILY [facility] - Assessment Assessment (Free Text/Narrative):: POD#1 - right reverse TSA - Plan Plan (Free Text/Narrative):: 1. Discharge to [facility] unit today. 2. Hgb 11.0. 3. 325mg ASA PO daily. The pt's case was discussed with Dr. Pimentel.
--- NOTE | 2018-09-28 08:39 | PCM48HPAN ---
Post Anesthesia Note - EVALUATION WITHIN 48HRS OF ANESTHETIC Vital Signs in Normal Range: Yes Patient Participated in Evaluation: Yes Respiratory Function Stable: Yes Airway Patent: Yes Cardiovascular Function Stable: Yes Hydration Status Stable: Yes Pain Control Satisfactory: Yes Nausea and Vomiting Control Satisfactory: Yes Mental Status Recovered: Yes
[2018-09-28] MEDS ORDERED: Aspirin 325 MG Tab.EC PO SCH (09:00)
[2018-09-28] MEDS ORDERED: Sertraline 50 MG Tab PO SCH (09:00)
[2018-09-28] MEDS ORDERED: Hydrochlorothiazide/Triamterene 25-37.5 MG Cap PO SCH (09:00)
[2018-09-28] MEDS ORDERED: Vitamin B Complex With Vitamin C Cap PO SCH (09:00)
[2018-09-28] MEDS ORDERED: Cyanocobalamin (Vitamin B12) 1,000 MCG Tab PO SCH (09:00)
[2018-09-28] MEDS ORDERED: Cholecalciferol (Vitamin D3) 5,000 UNIT Tab PO SCH (09:00)
[2018-09-28] MEDS: Carvedilol 12.5 MG Tab PO SCH (09:13)
[2018-09-28] MEDS: Docusate Sodium 100 MG Cap PO SCH (09:13)
--- NOTE | 2018-09-28 10:59 | CR ---
Chest: AP and lateral views of the chest were obtained. Comparison: No prior chest x-ray is available. 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 Lungs are clear with no acute parenchymal change. Bony structures show degenerative change within the spine. No acute osseous abnormality is seen. Impression: 1. Nothing acute is seen on two-view chest x-ray. Diagnostic code #2
[2018-09-28 12:12] VITALS: BP 112/74
--- NOTE | 2018-09-29 18:16 | PCM.DCSUM1 ---
Discharge Summary - Hospital Course Brief History: Holly is a 73 yo female who underwent right reverse TSA with Dr. Pimentel on 09-27-2018. The procedure was completed under general anesthesia with regional block. The pt tolerated the procedure well and was admitted to the Medical-Surgical Unit. Medical management was provided by the Hospitalist service. The pt's Hospital course was remarkable for a cough that was evaluated by the Hospitalist service and improved prior to discharge. The pt's Hgb on POD#1 was 11.0. On POD#1, 325mg ASA was initiated for VTE prophylaxis. SCDs and TEDs were also ordered. A Mepilex dressing was placed at the incision site at the time of surgery and remained clean and dry. The pt participated in P.T. and O.T. and progressed well. On POD#1, the pt was deemed appropriate to discharge to the [facility] in [place], [place]. - Discharge Data Discharge Date: 09/28/18 Discharge Disposition: Home, Self-Care 01 Condition: Good - Patient Summary/Data Consults: Consultations 09/27/18 07:04 OT Evaluation and Treatment [CONS] Routine PT Evaluation and Treatment [CONS] Routine 09/27/18 07:06 Consult to Physician [CONS] Routine - Patient Instructions Diet: Usual Diet as Tolerated Activity: Apply Ice, As Tolerated, Elevate Extremity Activity, Other: No forceful use of the surgical limb. Driving: Do Not Drive Showering/Bathing: May Shower Wound/Incision Care: Keep Operative Site/Wound Site Clean and Dry, Do NOT Change Dressing Notify Provider of: Fever, Increased Pain, Swelling and Redness, Drainage, Nausea and/or Vomiting Other/Special Instructions: Please get up and moving around EVERY HOUR while awake. Take a short walk every hour while awake. This helps to prevent blood clots. Have help with mobility as needed. Please take 325mg aspirin daily. Please wear the DONNA hose during the day and you may remove them at night. Please schedule for therapy. Complete the therapy exercises that were instructed in the Hospital. Please use the pain medication as needed. The medication may cause drowsiness and/or constipation. You could use a stool softener like docusate sodium or Colace 100mg twice daily and/or a laxative like Miralax daily for constipation. Contact your primary care provider for further instructions if you are constipated. Discontinue use of the pain medication as soon as able. Please do not use other medications that may cause drowsiness (other pain medications, anxiety pills, sleeping pills, allergy medications that cause drowsiness) while using the pain medication. Please do not use alcohol while using the pain medication. Use the incentive spirometer often. Please place ice to the surgical site often. Place a towel between your skin and the blue pad. Please elevate the limb to decrease swelling. Keep the dressing in place until follow-up. Please notify the Clinic if the dressing is saturated or rolls. Increase protein intake in your diet as this helps with healing. If you are a diabetic, please closely monitor your blood sugars and notify your primary care provider of your values. Elevated blood sugars increases the risk of infection. Please call [phone] with questions or concerns. - Discharge Plan *PRESCRIPTION DRUG MONITORING PROGRAM REVIEWED*: No *COPY OF PRESCRIPTION DRUG MONITORING REPORT IN PATIENT DORY: No Prescriptions/Med Rec: Acetaminophen/oxyCODONE [Percocet 325-5 MG] 1 - 2 tab PO Q6H PRN #60 tablet PRN Reason: Pain Home Medications: Home Meds Carvedilol [Coreg] 12.5 mg PO BID 09/26/16 [History] Esomeprazole [NexIUM] 40 mg PO DAILY 09/26/16 [History] Levothyroxine 75 mcg PO DAILY 09/26/16 [History] Pravastatin [Pravachol] 40 mg PO BEDTIME 09/26/16 [History] Ubidecarenone [Co Q-10] 200 mg PO BEDTIME 09/26/16 [History] Vitamin B Complex 1 cap PO DAILY 09/26/16 [History] Aspirin [Ecotrin] 325 mg PO DAILY tab.ec 09/30/16 [Rx] Cholecalciferol (Vitamin D3) [Vitamin D3] 5,000 - 10,000 unit PO DAILY 09/24/18 [History] Cyanocobalamin (Vitamin B12) [Vitamin B12] 1,000 mcg PO DAILY 09/24/18 [History] Gabapentin [Neurontin] 200 mg PO BEDTIME 09/24/18 [History] Hydroxychloroquine Sulfate [Plaquenil] 200 mg PO BEDTIME 09/24/18 [History] Ketotifen Fumarate [Alaway] 1 drop OP BID 09/24/18 [History] Sertraline [Zoloft] 100 mg PO DAILY 09/24/18 [History] Triamterene/Hydrochlorothiazid [Triamterene-HCTZ 37.5-25 MG] 1 tab PO DAILY [History] Zicam 2 spray LUCY BID 09/24/18 [History] Acetaminophen [Acetaminophen ER] 1,950 mg PO Q6H PRN #0 09/27/18 [Rx] Acetaminophen/oxyCODONE [Percocet 325-5 MG] 1 - 2 tab PO Q6H PRN #60 tablet [Rx] Bisacodyl [Dulcolax] 5 mg PO DAILY PRN tablet 09/27/18 [Rx] Docusate Sodium [Colace] 100 mg PO BID cap 09/27/18 [Rx] Magnesium Hydroxide [Milk of Magnesia] 30 ml PO BID PRN cup 09/27/18 [Rx] Sennosides [Senna] 8.6 mg PO BID PRN tablet 09/27/18 [Rx] Referrals: Salma Dallas PA-C [Physician [employer]] - 10/05/18 11:00 am (You have a follow up appointment with Salma in [place] at 1100 on 10/05/18 ) Debra Bah MD [Ordering Only Provider] - 10/06/18 2:00 pm ([facility] will see Dr. Bah in [facility] on 10/[address] Heredia is not accepting new patients. ) - Discharge Summary/Plan Comment DC Time >30 min.: No - Patient Data Vitals - Most Recent: Last Vital Signs Temp 97.7 F 09/28/18 11:35 Pulse 64 09/28/18 11:35 Resp 18 09/28/18 11:35 BP 112/74 09/28/18 11:35 Pulse Ox 93 L 09/28/18 11:35 Weight - Most Recent: 200 lb 6.4 oz Med Orders - Current: Current Medications Discontinued Medications Acetaminophen (Tylenol) 325 mg PO NOW ONE Stop: 09/27/18 13:09 Last Admin: 09/27/18 13:16 Dose: 325 mg Aspirin (Ecotrin) 325 mg PO DAILY [facility] Last Admin: 09/28/18 09:13 Dose: 325 mg Bisacodyl (Dulcolax) 5 mg PO DAILY PRN PRN Reason: Constipation Carvedilol (Coreg) 12.5 mg PO BID [facility] Last Admin: 09/28/18 09:13 Dose: 12.5 mg Cefazolin Sodium (Ancef) Confirm Administered Dose 2 gm .ROUTE .STK-MED ONE Stop: 09/27/18 09:42 Last Admin: 09/27/18 12:14 Dose: 2 gm Cefazolin Sodium (Ancef) Confirm Administered Dose 2 gm .ROUTE .STK-MED ONE Stop: 09/27/18 09:58 Cholecalciferol (Vitamin D3) 5,000 - 10,000 unit PO DAILY [facility] Last Admin: 09/28/18 09:13 Dose: 5,000 unit Cyanocobalamin (Vitamin B12) 1,000 mcg PO DAILY [facility] Last Admin: 09/28/18 09:12 Dose: 1,000 mcg Diphenhydramine HCl (Benadryl) 12.5 mg IVPUSH Q6H PRN PRN Reason: pruritis Docusate Sodium (Colace) 100 mg PO BID [facility] Last Admin: 09/28/18 09:13 Dose: 100 mg Epinephrine HCl (Adrenalin) Confirm Administered Dose 1 mg .ROUTE .STK-MED ONE Stop: 09/27/18 07:52 Fentanyl (Sublimaze) Confirm Administered Dose 100 mcg .ROUTE .STK-MED ONE Stop: 09/27/18 08:12 Fentanyl (Sublimaze) Confirm Administered Dose 100 mcg .ROUTE .STK-MED ONE Stop: 09/27/18 09:16 Fentanyl (Sublimaze) Confirm Administered Dose 100 mcg .ROUTE .STK-MED ONE Stop: 09/27/18 09:38 Fentanyl (Sublimaze) Confirm Administered Dose 100 mcg .ROUTE .STK-MED ONE Stop: 09/27/18 12:15 Fentanyl (Sublimaze) 50 mcg IVPUSH Q5M PRN PRN Reason: Pain Gabapentin (Neurontin) 200 mg PO BEDTIME [facility] Last Admin: 09/27/18 20:37 Dose: 200 mg Glycopyrrolate () Confirm Administered Dose 1 mg .ROUTE .STK-MED ONE Stop: 09/27/18 12:19 Hydroxychloroquine Sulfate (Plaquenil) 200 mg PO BEDTIME [facility] Last Admin: 09/27/18 20:39 Dose: 200 mg Lactated Ringer's (Ringers, Lactated) 1,000 mls @ 125 mls/hr IV ASDIRECTED [facility] Stop: 09/27/18 23:00 Last Admin: 09/27/18 08:20 Dose: 125 mls/hr Cefazolin Sodium/Dextrose 2 gm (/ Premix) 50 mls @ 100 mls/hr IV Q8H [facility] Stop: 09/28/18 10:29 Last Admin: 09/28/18 09:14 Dose: 100 mls/hr Lidocaine HCl (Xylocaine-Mpf 1%) Confirm Administered Dose 6 mls @ as directed .ROUTE .STK-MED ONE Stop: 09/27/18 09:38 Lidocaine HCl (Xylocaine-Mpf 1%) Confirm Administered Dose 6 mls @ as directed .ROUTE .STK-MED ONE Stop: 09/27/18 12:18 Iodine (Iodine 2% Mild Tincture) Confirm Administered Dose 30 ml .ROUTE .STK- MED ONE Stop: 09/27/18 09:58 Last Admin: 09/27/18 12:16 Dose: 18 ml Levothyroxine Sodium (Levothyroxine) 75 mcg PO ACBRK [facility] Last Admin: 09/28/18 06:48 Dose: 75 mcg Lidocaine/Sodium Bicarbonate (Buffered Lidocaine 1% In Ns 8.4%) 0.25 ml IDERM ONETIME PRN PRN Reason: Prior to IV Start Stop: 09/27/18 18:00 Last Admin: 09/27/18 08:15 Dose: 0.25 ml Magnesium Hydroxide (Milk Of Magnesia) 30 ml PO BID PRN PRN Reason: Constipation Midazolam HCl (Versed 1 Mg/Ml) Confirm Administered Dose 2 mg .ROUTE .STK-MED ONE Stop: 09/27/18 08:12 Midazolam HCl (Versed 1 Mg/Ml) Confirm Administered Dose 2 mg .ROUTE .STK-MED ONE Stop: 09/27/18 12:16 Morphine Sulfate (Morphine) 2 mg IVPUSH Q2H PRN PRN Reason: Breakthrough Pain Naloxone HCl (Narcan) 0.1 mg IVPUSH Q5M PRN PRN Reason: Oversedation Neostigmine Methylsulfate (Neostigmine) Confirm Administered Dose 5 mg .ROUTE .STK-MED ONE Stop: 09/27/18 12:19 Non-Formulary Medication (Ketotifen Fumarate) 1 drop OP BID [facility] Last Admin: 09/28/18 07:43 Dose: Not Given Non-Formulary Medication (Ubidecarenone [Co Q-10]) 200 mg PO BEDTIME [facility] Last Admin: 09/28/18 07:43 Dose: Not Given Non-Formulary Medication (Zicam) 2 spray LUCY BID [facility] Last Admin: 09/28/18 07:43 Dose: Not Given Ondansetron HCl (Zofran) 4 mg IVPUSH Q6H PRN PRN Reason: Nausea/Vomiting Ondansetron HCl (Zofran) Confirm Administered Dose 4 mg .ROUTE .STK-MED ONE Stop: 09/27/18 09:15 Ondansetron HCl (Zofran) Confirm Administered Dose 4 mg .ROUTE .STK-MED ONE Stop: 09/27/18 09:41 Ondansetron HCl (Zofran) 4 mg IVPUSH ONETIME PRN PRN Reason: Nausea/Vomiting Oxycodone/Acetaminophen (Percocet 325-5 Mg) 1 - 2 tab PO Q4H PRN PRN Reason: Pain Last Admin: 09/28/18 11:31 Dose: 2 tab Pantoprazole Sodium (Protonix) 40 mg PO DAILY@0700 [facility] Last Admin: 09/28/18 06:48 Dose: 40 mg Propofol (Diprivan 20 Ml) Confirm Administered Dose 200 mg .ROUTE .STK-MED ONE Stop: 09/27/18 09:16 Propofol (Diprivan 20 Ml) Confirm Administered Dose 200 mg .ROUTE .STK-MED ONE Stop: 09/27/18 09:37 Rocuronium [place] (Zemuron) Confirm Administered Dose 50 mg .ROUTE .STK-MED ONE Stop: 09/27/18 09:15 Ropivacaine (Naropin 0.5%) Confirm Administered Dose 30 ml .ROUTE .STK-MED ONE Stop: 09/27/18 07:53 Senna (Senna) 8.6 mg PO BID PRN PRN Reason: Constipation Sertraline HCl (Zoloft) 100 mg PO DAILY [facility] Last Admin: 09/28/18 09:12 Dose: 100 mg Simvastatin (Zocor) 20 mg PO BEDTIME [facility] Last Admin: 09/27/18 20:37 Dose: 20 mg Sodium Chloride (Saline Flush) 10 ml FLUSH ASDIRECTED PRN PRN Reason: Keep Vein Open Stop: 09/27/18 18:00 Tranexamic Acid (Cyklokapron) Confirm Administered Dose 1,000 mg .ROUTE .STK- MED ONE Stop: 09/27/18 09:58 Last Admin: 09/27/18 12:25 Dose: 1,000 mg Triamterene/HCTZ (Dyazide 25-37.5 Mg) 1 each PO DAILY [facility] Vancomycin HCl (Vancomycin) Confirm Administered Dose 1 gm .ROUTE .STK-MED ONE Stop: 09/27/18 09:58 Last Admin: 09/27/18 12:20 Dose: 1 gm Vitamin B Complex/Vitamin C (Super B With Vitamin C) 1 cap PO DAILY [facility] Last Admin: 09/28/18 09:12 Dose: 1 cap
--- NOTE | 2018-09-30 09:39 | PCM.OPNOTE ---
- General Post-Op/Procedure Note Date of Surgery/Procedure: 09/27/18 Operative Procedure(s): right reverse total shoulder arthroplasty Pre Op Diagnosis: right shoulder rotator cuff tear arthropathy Post-Op Diagnosis: Same Anesthesia Technique: General ET Tube, Regional Block Primary Surgeon: Scott Pimentel Anesthesia Provider: Zulema Jones Field Attendant: Salma Dallas Field Attendant: Nahomy Dalton EBL in mLs: 200 Complications: None Condition: Good Free Text/Narrative:: 36+4 7 stem 3mm poly
--- NOTE | 2018-09-30 10:37 | OR ---
DATE OF OPERATION: 09/27/2018 SURGEON: Scott Pimentel MD OPERATION PERFORMED: Right reverse total shoulder arthroplasty. PREOPERATIVE DIAGNOSIS: Right shoulder rotator cuff tear and arthropathy. POSTOPERATIVE DIAGNOSIS: Right shoulder rotator cuff tear and arthropathy. ANESTHESIA: General endotracheal intubation with regional interscalene block. ANESTHESIA PROVIDER: Jacob Winston. ASSISTANTS: Salma Dallas PA-C and Nahomy Dalton LPN. ESTIMATED BLOOD LOSS: 200 mL. COMPLICATIONS: None. CONDITION: Stable. IMPLANTS: 1. Arthrex size 7 humeral stem. 2. Arthrex size 36, +4 glenosphere. 3. Arthrex size small glenoid baseplate. 4. Arthrex size 3 mm polyethylene with humeral component 135 degrees. DESCRIPTION OF PROCEDURE: The patient was identified in the preop holding area. The proper site was marked and identified by the surgeon. The patient was taken back to the operating theater. After adequate anesthesia, the patient's right upper extremity was sterilely prepped and draped in the usual sterile fashion. OR time-out was performed. The patient received 2 g IV Ancef. At this time, standard deltopectoral incision was made. Blunt dissection was taken down the cephalic vein. The cephalic vein as well as the deltopectoral interval were identified. At this time, I retracted the cephalic vein and deltoid laterally. The clavipectoral fascia was then incised. Conjoined tendon was retracted medially. The anterior humeral circumflex vessels were then ligated with 0 Vicryl stick tie. The biceps tendon was identified, and a #2 FiberWire was used for subpectoral tenodesis. A tenotomy was then performed and was resected all the way back to the level of the glenoid. Peel down of the subscapularis tendon was then done and the humeral neck cut was then completed. At this time, attention was turned to the glenoid. Anterior and posterior retractors were placed. A circumferential removal soft tissue as well as labrum was done around the glenoid. A guide pin was then placed in a center-center position. The central reamer was then used and then a small peripheral reamer was then used and found to have adequate purchase. At this time, the small glenoid baseplate was impacted into place. Central nonlocking screw was placed, and then inferior and superior locking screws were placed. There was found to be no soft tissue around the periphery. At this time, attention was turned to the humerus. Starting with a size 5 broach, I was able to broach up to a size 7, which was found to be rotationally and vertically stable. The central reamer for the humeral side was then used. A 36, +4 glenosphere was then impacted in place and trial components were placed. At 135 degrees +3 liner was then found to be stable throughout range of motion with no signs of instability. At this time, the components were constructed on the back table for size 7 stem with 135 degree components and a +3 liner. This was then impacted into place and the shoulder was relocated. The patient again was found to have adequate range of motion throughout the shoulder with no instability. C-arm fluoroscopy showed it to be in proper positioning. At this time, 1 L dilute Betadine solution along with 3 L pulse lavage irrigation with Ancef were irrigated through the shoulder. Topical tranexamic acid as well as vancomycin powder were placed. The deltopectoral interval was tagged with a FiberWire. 2-0 Vicryl was used subcutaneously, Prineo was used for the skin. The patient tolerated the procedure well and was sent to PACU in stable condition. CARRINGTON /[id number] SARA
== END 2018-09-28 14:28 | disposition home or self-care (01) | DRG 483 ==
LOC: JD.MS 07:56
PROVIDERS: ADMIT Orthopaedic Surgery; ATTEND Orthopaedic Surgery
PROC: 0RRJ00Z Replacement of Right Shoulder Joint with Reverse Ball and Socket Synthetic Substitute, Open Approach (ICD-10-PCS; principal; 2018-09-27)
PROC: 3E0T3BZ Introduction of Anesthetic Agent into Peripheral Nerves and Plexi, Percutaneous Approach (ICD-10-PCS; 2018-09-27)
DX: M19.011 Primary osteoarthritis, right shoulder (principal); M34.9 Systemic sclerosis, unspecified; M75.101 Unspecified rotator cuff tear or rupture of right shoulder, not specified as traumatic; F32.9 Major depressive disorder, single episode, unspecified; I10 Essential (primary) hypertension; E03.9 Hypothyroidism, unspecified; I73.9 Peripheral vascular disease, unspecified; I73.00 Raynaud's syndrome without gangrene; M06.9 Rheumatoid arthritis, unspecified; M54.5 Low back pain; G89.29 Other chronic pain; H81.10 Benign paroxysmal vertigo, unspecified ear; I25.10 Atherosclerotic heart disease of native coronary artery without angina pectoris; K21.9 Gastro-esophageal reflux disease without esophagitis; G43.909 Migraine, unspecified, not intractable, without status migrainosus; H91.90 Unspecified hearing loss, unspecified ear; M32.9 Systemic lupus erythematosus, unspecified; G89.18 Other acute postprocedural pain; I83.90 Asymptomatic varicose veins of unspecified lower extremity; M10.9 Gout, unspecified; Z88.8 Allergy status to other drugs, medicaments and biological substances; Z95.828 Presence of other vascular implants and grafts; Z90.710 Acquired absence of both cervix and uterus; Z87.891 Personal history of nicotine dependence; Z79.890 Hormone replacement therapy; Z79.899 Other long term (current) drug therapy; Z79.82 Long term (current) use of aspirin; Z88.2 Allergy status to sulfonamides; Z96.612 Presence of left artificial shoulder joint; Z96.653 Presence of artificial knee joint, bilateral; Z88.1 Allergy status to other antibiotic agents; Z91.030 Bee allergy status; Z86.010 Personal history of colon polyps
CPT/HCPCS: 01638; 36415; 64415; 71046; 71046-26; 73020-26-RT; 73020-RT; 76000; 76000-26; 80048; 80053; 85027; 97110-GP; 97116-GP; 97162-GP; 97165-GO; 97535-GO; A9270-GY; C1713; C1776; J0171; J0690; J2001; J2250; J2405; J2704; J2710; J2795; J3010; J3370; J7120